=== PATIENT | male | born 1950 | race Caucasian/White ===

== ENCOUNTER 2022-11-05 11:58 | Outpatient (OUT) | payer MEDICARE, OTHER, SELFPAY ==
--- NOTE | 2022-11-05 12:01 | MR_ITS ---
[address] [address] Patient Name: MACIEL PEREZ MRN: [id number] date: 1950 Sex: M Assigned Patient Location: MRI Current Patient Location: Accession/Order Number: [id number] Exam Date: 11/05/2022 12:50 Report Date: 11/06/2022 04:41 At the request of: WARREN YOUSSEF Procedure: MR lumbar spine wo con EXAMINATION: MR lumbar spine wo con HISTORY: Acute L-side low back pain with L-side sciatica M54.42 COMPARISON: No relevant comparison available. TECHNIQUE: A variety of imaging planes and parameters were utilized for visualization of suspected pathology. FINDINGS: For the purposes of numbering, sagittal T2 image # 8 extends from the T11-T12 vertebral body superiorly to the S3 level inferiorly. PARASPINAL AREA: Normal with no visible mass. BONES: Straightening of normal lordotic curvature T12-L2. Minimal grade 1 retrolisthesis of L2 on 3 and L3 on 4. CORD/CAUDA EQUINA: Normal caliber, contour, and signal intensity. DISC LEVELS: 12-L1: No significant disc/facet abnormality, spinal stenosis, or foraminal stenosis. L1-L2: Early degenerative disc disease is present without focal protrusion or neural impingement. L2-L3: Moderate central canal and mild bilateral foramen narrowing. Minimal grade 1 retrolisthesis. Moderate posterior disc-osteophyte complex and marked disc space narrowing. Mild degenerative facet arthropathy bilaterally. L3-L4: Moderate central canal and mild bilateral foramen narrowing. Minimal grade 1 retrolisthesis. Moderate posterior disc-osteophyte complex and marked disc space narrowing. Mild degenerative facet arthropathy. L4-L5: Marked central canal narrowing. Moderate-marked left foramen and moderate right foramen narrowing. Marked diffuse disc bulging with large broad-based protrusion into the left paracentral and foraminal region; no significant disc height reduction. Moderate degenerative facet arthropathy bilaterally. L5-S1: No significant disc/facet abnormality, spinal stenosis, or foraminal stenosis. MR/MR lumbar spine wo con IMPRESSION: 1. Multilevel central canal narrowing, greatest at L4-L5 there is marked narrowing. 2. Multilevel foraminal narrowing. 3. Marked degenerative disc disease L2-L3 through L4-L5. Electronically authenticated by: SUKHDEEP BOLES Date: 11/06/2022 04:41
== END 2022-11-05 11:59 | disposition home or self-care (01) ==
LOC: MRI 11:58
PROVIDERS: PCP Physician Assistant; Visit Provider Physician Assistant
DX: M54.42 Lumbago with sciatica, left side (principal); M51.36 Other intervertebral disc degeneration, lumbar region; M48.061 Spinal stenosis, lumbar region without neurogenic claudication
CPT/HCPCS: 72148

== ENCOUNTER 2022-12-16 08:42 | Outpatient (OUT) | payer MEDICARE, OTHER, SELFPAY ==
--- NOTE | 2022-12-16 | NM_ITS ---
Patient: MACIEL PEREZ Exam Date: 12/16/2022 : 1950 Gender:M Ordering : YOBANY CRUZ Admission #: [id number] Family : DR WARREN YOUSSEF PA Order #: [id number] CLICK HERE TO VIEW EXAM RADIOLOGY REPORT PROCEDURE: NM STEPH PERF SPECT REST STR COMPARISON: None. INDICATIONS: ATHEROSCLEROTIC HEART DISEASE OF [place] CORONARY ARTERY TECHNIQUE: Exam Description: Stress/Rest two day protocol gated SPECT Rest Imagin.1 mCi Tc-99m Cardiolite IV on 12/16/2022 Stress Imaging 25.3 mCi Tc-99m Cardiolite IV on 12/17/2022 Exercise Protocol: 0.4 mg Lexiscan given IV Heart Rate (bpm): Rest: 60 Max: 80 PMHR: 53 Blood Pressure: Rest: 156/80 Max: 158/88 Symptoms: Rest and peak stress ECG findings were normal and the exercise portion of the study was normal per attending physician Dr. Yancey . For more details please see separate cardiac stress test report. FINDINGS: QUALITY OF STUDY: Good. PERFUSION DEFECT: LOCATION: Basal inferior. Mid-inferior. SIZE: Small (1-2 segments). SEVERITY: Moderate. TYPE: Persistent. WALL MOTION: Normal. LV SIZE: Enlarged; EDV 123 mL. TID / TCD: None; 1.0 LVEF: Calculated EF 67%. SUMMARY: Myocardial perfusion imaging study has ABNORMAL findings. CONCLUSION: 1. Fixed defect in the inferior wall, RCA distribution 2. No reversible ischemia 3. Dilated left ventricle, EDV 123 milliliters 4. Normal exercise test Dictated by: Deon Burns MD on 12/18/2022 at 12:13 Approved by: Deon Burns MD on 12/18/2022 at 12:22
== END 2022-12-16 08:43 | disposition home or self-care (01) ==
LOC: NM 08:42
PROVIDERS: PCP Physician Assistant; Visit Provider Nurse Practitioner
DX: I25.118 Atherosclerotic heart disease of native coronary artery with other forms of angina pectoris (principal); I20.8 Other forms of angina pectoris
CPT/HCPCS: 78452; A9500

== ENCOUNTER 2022-12-17 09:02 | Outpatient (OUT) | payer MEDICARE, OTHER, SELFPAY ==
--- NOTE | 2022-12-17 | PCN_ITS ---
CARDIAC STRESS TEST Requesting Physician:? Procedure Date:? 12/17/2022 DIAGNOSIS:? Coronary artery disease, angina. METHODS:? After risks, benefits and alternatives were explained, written informed consent was obtained.? The patient was connected to the appropriate hemodynamic and electrocardiographic monitoring.? Lexiscan 0.4 mg was infused intravenously; he was monitored for the standard duration and discharged in a stable state.? 25.3 microcuries of 99m Technetium Cardiolite were administered at peak stress on 12/17/2022. INTERPRETATION: HEMODYNAMICS:? The patient?s resting blood pressure was 156/80, with a minimum blood pressure of 152/80..? Resting heart rate was 60 beats per minute, increasing to a maximum of 79 beats per minute. The patient had no symptoms during the test. ELECTROCARDIOGRAPHY:? Resting EKG:? Normal sinus rhythm, normal EKG. During infusion and recovery:? No significant ST-T wave changes noted.? No significant arrhythmia seen.? FINAL IMPRESSIONS: 1.? No ischemic EKG changes seen on Lexiscan Cardiolite Stress Test. 2.? Nuclear images are to be read, interpreted and reported in a separate dictation. [facility]OSPITALPeter
[2022-12-17] MEDS: REGADENOSON 0.4 MG/5 ML SYRINGE IV (09:43)
== END 2022-12-17 09:03 | disposition home or self-care (01) ==
LOC: CARD 09:02
PROVIDERS: PCP Physician Assistant; Visit Provider Nurse Practitioner
DX: I25.118 Atherosclerotic heart disease of native coronary artery with other forms of angina pectoris (principal); I20.8 Other forms of angina pectoris
CPT/HCPCS: 93017; J2785

== ENCOUNTER 2023-02-06 13:07 | Outpatient (OUT) | payer MEDICARE, OTHER, SELFPAY ==
--- NOTE | 2023-02-06 14:10 | PM.CN ---
Consult Note: HPI Data of Consult Requesting Physician: Essence Fonseca NP Primary Care Provider: WARREN YOUSSEF Consult Narrative Reason for consult: f/u Narrative: Souleymane grant pleasant 73 year old male presents for evaluation and management of chronic low back pain. Patient injured himself in August of 2022 when lifting a chair, has completed 12 visits of PT and trialed gabapentin with 90% pain improvement. Was evaluated by Dr Sweeney (NS) and is continuing to follow up as needed, Dr Sweeney weaned patient off of gabapentin and pain has not intensified since. Patient interested in learning about different treatment options. Pain today 04/02, recent lumbar MRI reveals degenerative changes and diffuse disc bulging at L4-5, however patient has no radicular symptoms at this time. cc:: CC: Essence Fonseca NP Review of Systems ROS Status of ROS 10 or more systems reviewed and unremarkable except as noted in history and below Musculoskeletal Reports: back pain Exam Constitutional Documenting provider has reviewed patient's vital signs: yes Common normals: no apparent distress, oriented x3, healthy appearing, alert and well nourished General appearance: cooperative HENMT Common normals: normocephalic, hearing grossly normal bilaterally and moist oral mucous membranes Head and scalp: normocephalic Eye Common normals: PERRL Pupil: PERRL Neck & C-Spine Common normals: full ROM General: normal visual inspection Chest Common normals: inspection of chest normal Respiratory Common normals: normal respiratory effort, no retractions and no use of accessory muscles Back & Pelvis Lumbar spine/lower back: pain with ROM Other: mild pain with bilateral facet loading Extremity Common normals: normal to inspection and full ROM Neuro Common normals: oriented x3, CN's II-XII intact bilaterally, moves all extremities, no focal motor deficits, no sensory deficits noted and deep tendon reflexes 2+ bilaterally Sensorium/orientation: alert Motor exam: strength 5/5 throughout and no movement abnormalities noted Psych Common normals: mental status grossly normal, thought process normal, cooperative, affect normal, speech normal and activity/motor behavior normal Speech: normal speech Thought process: normal thought process Assessment and Plan Assessment and Plan (1) Lumbar spondylosis: (2) Lumbar stenosis: Plan self referral, pain well managed at this point in time discussed TFESIs in the future if pain worsens can consider lumbar facets and RFA if worsening low back pain related to degerenative changes f/u as needed
== END 2023-02-06 13:08 | disposition home or self-care (01) ==
LOC: PM 13:07
PROVIDERS: PCP Physician Assistant; Visit Provider Nurse Practitioner
DX: M47.816 Spondylosis without myelopathy or radiculopathy, lumbar region (principal); M48.061 Spinal stenosis, lumbar region without neurogenic claudication
CPT/HCPCS: G0463

== ENCOUNTER 2023-11-07 07:11 | Outpatient (OUT) | payer MEDICARE, BC, SELFPAY ==
--- NOTE | 2023-11-07 | PCN_ITS ---
CARDIAC STRESS TEST Requesting Physician: Pedro No M.D. Procedure Date: 11/07/2023 PERFORMING PROVIDER: Donita Leon M.D. REASON FOR TEST: Chest pain. STRESS TEST PROTOCOL: Treadmill stress test with nuclear myocardial perfusion imaging: EXERCISE PROTOCOL: Papito. Resting heart rate: 62 Max heart rate: 131 Peak maximal heart percentage: 87 Resting blood pressure: 144/84 Max blood pressure: 197/78 Exercise time: 5 minute 32 seconds Stage reached: 2 METS: 7 Reason for termination: Target heart rate achieved, fatigue. Heart rate recovery: Normal. Chronotropic response index: 0.79, normal on beta yifan. Functional capacity: Average Blood pressure response: Normal. Park treadmill score: 5, portending low risk of angiographically significant coronary artery disease. ST changes: No EKG changes meeting the criteria for ischemia. Symptoms: No chest pain. CONCLUSIONS: 1. Resting EKG demonstrates normal sinus rhythm. 2. Patient exercised for 5 minutes 32 seconds, reaching stage 2 and 7 METS. 3. There were no definite EKG changes meeting the criteria for ischemia at peak maximal heart rate. 4. Please refer to separately interpreted and reported nuclear myocardial perfusion imaging. [facility]TD[facility]
--- OUTSIDE RECORDS SUMMARY | 2023-11-07 07:14 | XMS_ITS | CCD ---
Author Organization [facility] Care Team Providers Care Customer Support Consultant Name Role Phone BRITTANY, DR RENE Myaa Primary Care Unavailable MISC, DR KIRKLAND Consulting Unavailable DAVE BUENROSTRO Admitting Unavailable JAMES, DAVE Attending Unavailable SOTO, DR RENE Maya Primary Care Unavailable DAVE BUENROSTRO Admitting Unavailable JAMES, DAVE Attending Unavailable DAVE BUENROSTRO Consulting Unavailable CRISTOPHER, DAVE Attending Unavailable CRISTOPHER, DAVE Consulting Unavailable SOTO, DR RENE Maya Primary Care Unavailable CRISTOPHER, DAVE Admitting Unavailable SOTO, DR RENE Maya Primary Care Unavailable JAMES, DAVE Admitting Unavailable JAMES, DAVE Attending Unavailable PEDRO BARRAGAN Primary Care Unavailable PEDRO BARRAGAN Referring Unavailable JAMES, DAVE Admitting Unavailable JAMES, DAVE Attending Unavailable MD Vernon Garcia Attending Provider MD Pedro Barragan Primary Care Provider Michelle Murrell Unavailable Saúl Nichole Unavailable Pedro Barragan MD Unavailable Pedro Barragan MD Primary Care Provider MD Pedro Barragan Primary Care Provider CHAITANYA Murrell Attending Provider MD Pedro Barragan Primary Care Provider MD Vernon Garcia Attending Provider [phone] Vernon Garcia Attending Unavailable Vernon Garcia Admitting Unavailable Pedro Barragan Primary Care Unavailable Michelle Murrell Attending Unavailable Pedro Barragan Primary Care Unavailable Michelle Murrell Admitting Unavailable Pedro Barragan Primary Care Unavailable Saúl Nichole Attending Unavailable Saúl Nichole Admitting Unavailable Pedro Barragan Primary Care Unavailable Vernon Garcia Admitting Unavailable Vernon Garcia Attending Unavailable YOBANY MOURA Attending Unavailable JAMES, DAVE Referring Unavailable SHERLEY RAMOS Attending Unavailable JAMES, DAVE Referring Unavailable JAMES, DAVE Referring Unavailable JAMES, DAVE Referring Unavailable JAMES, DAVE Referring Unavailable JAMES, DAVE Referring Unavailable JAMES, DAVE Referring Unavailable JAMES, DAVE Referring Unavailable JAMES, DAVE Referring Unavailable PEDRO BARRAGAN Attending Unavailable CARA DUBOIS Attending Unavailable PEDRO BARRAGAN Referring Unavailable JUDIE YOUSSEF Attending Unavailable PROSPER TRAN Referring Unavailable PEDRO BARRAGAN Attending Unavailable Allergies Allergy Classification Reported Allergen(s) Allergy Type Date of Onset Reaction(s) Facility Dihydrofolate Reductase Inhibitors (antibiotic) (1 source) Trimethoprim Drug Allergy 4 [facility] Sulfonamides (antibiotic) (1 source) Sulfamethoxazole Drug Allergy 4 [facility] (2 sources) Sulfamethoxazole / Trimethoprim Drug Allergy 2 [facility] Repository (7 sources) Sulfamethoxazole / Trimethoprim Drug Allergy 2 Unknown [facility] (1 source) Sulfonamides (Antibiotic) Drug Allergy 3 Unknown [facility] Work Phone: (7 sources) Sulfamethoxazole; Translations: [sulfamethoxazole] Drug Allergy 4 [facility] (7 sources) Trimethoprim; Translations: [trimethoprim] Drug Allergy 4 [facility] (1 source) Sulfamethoxazole / Trimethoprim; Translations: [SULFAMETHOXAZOLE-TR IMETHOPRIM] Drug Allergy 2 [facility] Repository Medications Current Medications Medication Drug Class(es) Dates Sig (Normalized) Sig (Original) acetaminophen 300 mg / codeine phosphate 30 mg oral tablet (1 source) Opioid Agonist take 1 tablet by mouth every six hours as needed for pain acetaminophen-cod eine (TYLENOL/CODEINE #3) 300-30 MG tablet Take 1 tablet by mouth every 6 (six) hours if needed for severe pain. 0 Active [id number] 200 actuat albuterol 0.09 mg/actuat metered dose inhaler (1 source) beta2-Adrenergic Agonist albuterol HFA (Ventolin HFA) 90 mcg/act inhaler Inhale by inhalation route as directed for 25 days. 0 Active apixaban 5 mg oral tablet (18 sources) Factor Xa Inhibitor Start: 05-07-2023 take 1 tablet by mouth every twelve hours Apixaban (Eliquis) 5 mg tablet Active 5 MG PO Every 12 hours May 07, 2023 1:00am take 1 tablet by mouth in the mo rning Eliquis 5 MG tablet Take 1 tablet by mouth in the morning and 1 tablet before bedtime. 0 Active atorvastatin 40 mg oral tablet (7 sources) HMG-CoA Reductase Inhibitor take 1 tablet by mouth at bedtime atorvastatin (Lipitor) 40 MG tablet Take 1 tablet by mouth at bedtime. 0 Active clopidogrel 75 mg oral tablet (17 sources) P2Y12 Platelet Inhibitor Start: 4 take 75 mg by mouth once daily Clopidogrel Active 75 MG PO Daily May 07, 2023 1:00am take 1 tablet by mouth once lauren y clopidogrel (Plavix) 75 MG tablet Take 1 tablet by mouth 1 (one) time each day at the same time. 0 Active Clopidogrel & Aspirin (1 source) Clopidogrel & Aspirin Active empagliflozin 25 mg oral tablet (18 sources) Sodium-Glucose Cotransporter 2 Inhibitor Start: 05-07-19 24 take 1 tablet by mouth once daily in the morning Empagliflozin (Jardiance) 25 mg tablet Active 25 MG PO Every morning May 07, 2023 1:00am Start: 11-13-2022 take 1 tablet by josi th in the morning empagliflozin (Jardiance) 25 MG Indications: Type 2 diabetes mellitus without complications (CMS/HCC) Take 1 tablet (25 mg) by mouth in the morning. 100 tablet 1 11/13/2022 Active Fiber (6 sources) Fiber - as direc kristin Orally Active fluticasone propionate 0.05 mg/actuat metered dose nasal spray (1 source) Corticosteroid take 1 spray(s) nasal route in the morning fluticasone (Flonase) 50 MCG/ACT nasal spray Administer 1 spray into each nostril in the morning. 0 Active gabapentin 300 mg oral capsule (2 sources) Anti-epileptic Agent Start: 3 take 1 capsule by mouth in the morning, then take 1 capsule by mouth in the evening, then take 1 capsule by mouth at bedtime gabapentin (Neurontin) 300 MG capsule Indications: Spondylosis of lumbar spine Take 1 capsule (300 mg) by mouth in the morning and 1 capsule (300 mg) in the evening and 1 capsule (300 mg) before bedtime. 270 capsule 1 12/02/2022 Active 24 hr isosorbide mononitrate 30 mg extended release oral tablet (17 sources) Nitrate Vasodilator Start: take 30 mg by mouth once daily Isosorbide Mononitrate Active 30 MG PO Daily May 07, 2023 1:00am Start: 11-20-2022 take 1 tablet by josi th once daily isosorbide mononitrate ER (Imdur) 30 MG 24 hr tablet Indications: Arteriosclerotic vascular disease Take 1 tablet (30 mg) by mouth 1 (one) time each day at the same time. 100 tablet 3 11/20/2022 Active isosorbide dinitrate 30 mg oral tablet (1 source) Nitrate Vasodilator take 1 tablet by mouth every twelve hours Isosorbide Dinitrate 30 MG 1 tablet Orally Twice a day Active lidocaine 0.05 mg/mg medicated patch (6 sources) Antiarrhythmic, Amide Local Anesthetic Start: 01-28-2023 Lidocaine 5 % 1 patch remove after 12 hours Externally Once a day for Jan, Active lisinopril 20 mg oral tablet (17 sources) Angiotensin Converting Enzyme Inhibitor Start: 05-07-2023 take 20 mg by mouth once daily Lisinopril Active 20 MG PO Daily May 07, 2023 1:00am lisinopril 20 MG tablet 1 tablet 1 (one) time each day at the same time. 0 Active meloxicam 15 mg oral tablet (18 sources) Nonsteroidal Anti-inflammatory Drug Start: 05-07-2023 take 15 mg by mouth once daily Meloxicam Active 15 MG PO Daily May 07, 2023 1:00am Start: 01-27-2023 take 1 tablet by josi th once daily meloxicam (Mobic) 15 MG tablet Indications: Primary osteoarthritis, right hand TAKE 1 TABLET BY MOUTH EVERY DAY FOR 100 DAYS 90 tablet 4 01/27/2023 Active metFORMIN hydrochloride 500 mg oral tablet (17 sources) Biguanide Start: 05-07-2023 take 500 mg by mouth once daily Metformin Active 500 MG PO Daily May 07, 2023 1:00am take 1 tablet by mouth once lauren y metFORMIN (Glucophage) 500 MG tablet Take 1 tablet by mouth 1 (one) time each day at the same time. 0 Active 24 hr metoprolol succinate 25 mg extended release oral capsule (18 sources) beta-Adrenergic Baudilio Start: 05-07-2023 take 50 mg by mouth twice daily Metoprolol Succinate Active 50 MG PO Twice daily May 07, 2023 1:00am take 1 tablet by josi th every twelve hours metoprolol tartrate (Lopressor) 50 MG tablet Take 1 tablet by mouth every 12 (twelve) hours. 0 Active take 1 capsule by mouth once val ly Metoprolol Succinate 50 MG 1 capsule Orally Once a day Active Multivitamin Adult (6 sources) Multivitamin Blue lt Active nitroglycerin 0.4 mg sublingual tablet (18 sources) Nitrate Vasodilator Start: 05-07-2023 Nitroglycerin Active 0.4 MG SUBLINGUAL As Directed May 07, 2023 1:00am Nitrostat 0.[address] 0.4 mg under the tongue every 5 (five) minutes if needed for chest pain. 0 Active Nitroglycerin 0. 4 MG as directed Sublingual Active ozempic (0.25 or 0.5 mg/dose) 2 mg/3ml solution pen-injector (5 sources) Start: 03-12-2023 inject 0.5 mg by subcutaneous injection every week Ozempic (0.25 or 0.5 MG/DOSE) 2 MG/3ML 0.5 mg Subcutaneous Once weekly for 28 days Feb, Active Start: 03-12-2023 inject 0.25 mg by valenzuela bcutaneous injection every week, then inject 0.5 mg by subcutaneous injection every week Ozempic (0.25 or 0.5 MG/DOSE) 2 MG/3ML 0.25 mg subcutaneously once weekly Subcutaneous Once weekly for 28 days Feb, Active Ozempic, 0.25 or 0.5 MG/DOSE, 2 MG/3ML solution pen-injector (1 source) Start: 03-12-2023 inject 0.25 mg by subcutaneous injection every week Ozempic, 0.25 or 0.5 MG/DOSE, 2 MG/3ML solution pen-injector INJECT 0.25 MG SUBCUTANEOUSLY ONCE A WEEK FOR 28 DAYS 0 03/12/2023 Active pravastatin sodium 20 mg oral tablet (10 sources) HMG-CoA Reductase Inhibitor Start: 07-02-2023 take 20 mg by mouth once daily Pravastatin Active 20 MG PO Daily July 02, 2023 12:00am rosuvastatin calcium 20 mg oral tablet (12 sources) HMG-CoA Reductase Inhibitor Start: 04-02-2023 End: 04-01-2024 take 20 mg by mouth once daily Rosuvastatin Active 20 MG PO Daily May 07, 2023 1:00am Semaglutide Base (18 sources) Start: 10-06-2023 inject 2.268 mg by subcutaneous injection every week Semaglutide Base Active 2.268 MG SUBCUT every week 2.52 October 06, 2023 3:14pm [facility] Pre-filled Syringes using Semaglutide Base. Dispense 2.52 mL = (Four 0.63 mL pre-filled syringes) Start: 09-17-2023 End: 10-06-2023 inject 1 mL by subcutaneous injection every week Semaglutide Base Discontinued 0.63 ML SUBCUT every week 2.52 September 17, 2023 12:00am October 06, 2023 3:16pm [facility] Pre-filled Syringes using Semaglutide Base. Dispense 2.52 mL = (Four 0.63 mL pre-filled syringes) Start: 09-17-2023 inject 1 mL by subcu taneous injection every week Semaglutide Base Active 0.63 ML SUBCUT every week 2.52 September 17, 2023 12:00am [facility] Pre-filled Syringes using Semaglutide Base. Dispense 2.52 mL = (Four 0.63 mL pre-filled syringes) Start: 07-02-2023 End: 09-17-2023 inject 1 mL by subcutaneous injection every week Semaglutide Base Discontinued 0.5 ML SUBCUT every week 2 July 02, 2023 12:00am September 17, 2023 10:27am [facility] Pre-filled Syringes using Semaglutide Base. Dispense 2 mL = (Four 0.5 mL pre-filled syringes) Start: 07-02-2023 inject 1 mL by subcu taneous injection every week Semaglutide Base Active 0.5 ML SUBCUT every week 2 July 02, 2023 12:00am [facility] Pre-filled Syringes using Semaglutide Base. Dispense 2 mL = (Four 0.5 mL pre-filled syringes) spironolactone 25 mg oral tablet (18 sources) Aldosterone Antagonist Start: 05-07-2023 take 12.5 mg by mouth once daily Spironolactone Active 12.5 MG PO Daily May 07, 2023 1:00am take 0.5 tablet by m outh in the morning spironolactone (Aldactone) 25 MG tablet TAKE 1/2 TABLET BY MOUTH IN THE MORNING 0 Active Spironolactone 2 5 MG 1 tablet Orally Active thiamine 100 mg oral tablet (10 sources) Start: 07-02-2023 take 100 mg by mouth once daily Thiamine Hcl (Vitamin B1) Active 100 MG PO Daily July 02, 2023 12:00am tiZANidine 4 mg oral tablet (1 source) Central alpha-2 Adrenergic Agonist Start: 11-12-2022 take 1 tablet by mouth every six hours for muscle spasms tiZANidine (Zanaflex) 4 MG tablet Indications: Acute left-sided low back pain with left-sided sciatica Take 1 tablet (4 mg) by mouth every 6 (six) hours if needed for muscle spasms for up to 10 days. 30 tablet 0 11/12/2022 Active Completed/Discontinued Medications Medication Drug Class(es) Dates Sig (Normalized) Sig (Original) 0.5 ml dulaglutide 1.5 mg/ml auto-injector (11 sources) GLP-1 Receptor Agonist Start: 05-07-2023 End: 07-02-2023 Dulaglutide (Trulicity) 0.75 mg/0.5 mL pen injector Discontinued 0.75 MG SUBCUT every week 2 May 07, 2023 1:00am July 02, 2023 9:56am Prednisone (16 sources) Start: 08-19-2023 End: 09-17-2023 Prednisone Discontinued 0 PO per package directions 22 03August 19, 2023 12:00am September 17, 2023 10:20am take 4 tabs for 3 days then take 3 tabs for 3 days then take 2 tabs for 3 days then take 1 tab for 3 days Start: 08-19-2023 Prednisone Act scott 0 PO per package directions 22 03August 19, 2023 12:00am take 4 tabs for 3 days then take 3 tabs for 3 days then take 2 tabs for 3 days then take 1 tab for 3 days Start: 08-19-2023 End: 08-19-2023 Prednisone Discontinued 0 PO per package directions August 19, 2023 12:00am August 19, 2023 10:25am take 4 tabs for 3 days then take 3 tabs for 3 days then take 2 tabs for 3 days then take 1 tab for 3 days Problems Active Problems Problem Classification Problem Date Documented Date Episodic/Chronic Administrative/social admission (20 sources) Dietary counseling and surveillance; Translations: [Other specified counseling] Onset: 03-12-2023 Episodic Asthma (1 source) Asthma; Translations: [Unspecified asthma, uncomplicated] Onset: 09-03-2022 09-03-2022 Chronic Cardiac dysrhythmias (14 sources) Atrial fibrillation; Translations: [Unspecified atrial fibrillation] Onset: 03-08-2022 09-03-2022 Chronic Cardiac dysrhythmias (2 sources) Palpitations; Translations: [Palpitations] Onset: 09-02-2023 Episodic Coronary atherosclerosis and other heart disease (20 sources) Coronary arteriosclerosis; Translations: [Atherosclerotic heart disease of [place] coronary artery without angina pectoris] Onset: 03-07-2022 Chronic Diabetes mellitus without complication (20 sources) Type 2 diabetes mellitus; Translations: [Type 2 diabetes mellitus without complications] Onset: 09-03-2022 Chronic Disorders of lipid metabolism (3 sources) Pure hypercholesterolemia; Translations: [Pure hypercholesterolemia, unspecified] Onset: 09-03-2022 09-03-2022 Chronic Diverticulosis and diverticulitis (1 source) Diverticulitis of large intestine; Translations: [Diverticulitis of large intestine without perforation or abscess without bleeding] Onset: 09-03-2022 09-03-2022 Chronic Essential hypertension (14 sources) Hypertensive disorder; Translations: [Essential (primary) hypertension] Onset: 03-07-2022 11-12-2022 Chronic Osteoarthritis (1 source) Osteoarthritis of joint of bilateral hands; Translations: [Primary osteoarthritis, right hand] Onset: 09-03-2022 09-03-2022 Chronic Other and ill-defined heart disease (11 sources) Heart disease; Translations: [Heart disease, unspecified] 05-07-2023 Chronic Other ear and sense organ disorders (1 source) Sensorineural hearing loss, bilateral; Translations: [Sensorineural hearing loss, bilateral] Onset: 09-03-2022 09-03-2022 Chronic Other infections; including parasitic (1 source) Late effects of other and unspecified infectious and parasitic diseases; 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] Onset: 09-03-2022 09-03-2022 Chronic Other nervous system disorders (1 source) Carpal tunnel syndrome; Translations: [Carpal tunnel syndrome, unspecified upper limb] Onset: 09-03-2022 09-03-2022 Chronic Other nervous system disorders (1 source) Idiopathic progressive polyneuropathy; Translations: [Idiopathic progressive neuropathy] Onset: 09-03-2022 09-03-2022 Chronic Other nervous system disorders (4 sources) Chronic pain; Translations: [Other chronic pain] 09-29-2023 Chronic Other nervous system disorders (6 sources) Other chronic pain; Translations: [Other chronic pain] 09-29-2023 Chronic Other non-traumatic joint disorders (1 source) Pain in left hip Episodic Other nutritional; endocrine; and metabolic disorders (6 sources) Body mass index 30+ - obesity; Translations: [Body mass index (BMI) 37.0-37.9, adult] Chronic Other nutritional; endocrine; and metabolic disorders (2 sources) Body mass index (BMI) 37.0-37.9, adult Chronic Other nutritional; endocrine; and metabolic disorders (5 sources) Morbid obesity; Translations: [Morbid (severe) obesity due to excess calories] Chronic Other nutritional; endocrine; and metabolic disorders (1 source) Morbid (severe) obesity due to excess calories Chronic Other nutritional; endocrine; and metabolic disorders (11 sources) Obese class II; Translations: [Obesity, unspecified] 05-07-2023 Chronic Other nutritional; endocrine; and metabolic disorders (11 sources) Obesity; Translations: [Obesity, unspecified] 05-07-2023 Chronic Other nutritional; endocrine; and metabolic disorders (15 sources) Obesity, unspecified; Translations: [Obesity, unspecified] Onset: 05-07-2023 05-07-2023 Chronic Other upper respiratory infections (1 source) Sinusitis; Translations: [Chronic sinusitis, unspecified] Onset: 09-03-2022 09-03-2022 Chronic Peripheral and visceral atherosclerosis (20 sources) Arteriosclerotic vascular disease; Translations: [Unspecified atherosclerosis] Onset: 09-03-2022 09-03-2022 Chronic Residual codes; unclassified (4 sources) Obstructive sleep apnea (adult) (pediatric); Translations: [OBSTRUCTIVE SLEEP APNEA] Onset: 03-28-2021 Chronic Residual codes; unclassified (1 source) Obstructive sleep apnea syndrome; Translations: [Obstructive sleep apnea (adult) (pediatric)] Onset: 09-03-2022 09-03-2022 Chronic Spondylosis; intervertebral disc disorders; other back problems (20 sources) Disorder of lumbar disc; Translations: [Unspecified thoracic, thoracolumbar and lumbosacral intervertebral disc disorder] Onset: 11-20-2022 Chronic Spondylosis; intervertebral disc disorders; other back problems (20 sources) Spinal stenosis of lumbar region; Translations: [Spinal stenosis, lumbar region without neurogenic claudication] 08-19-2023 Episodic Unclassified (1 source) CONTACT W/AND (SUSP) EXPOS COVID-19; Translations: [CONTACT W/AND (SUSP) EXPOS COVID-19] Onset: 10-03-2021 Past or Other Problems Problem Classification Problem Date Documented Date Episodic/Chronic Nonspecific chest pain (1 source) Chest pain; Translations: [Chest pain, unspecified] Onset: 03-07-2022 11-12-2022 Episodic Other ear and sense organ disorders (1 source) Bilateral tinnitus; Translations: [Tinnitus, bilateral] Onset: 09-03-2022 09-03-2022 Episodic Other screening for suspected conditions (not mental disorders or infectious disease) (1 source) MRI of lumbar spine abnormal; Translations: [Abnormal findings on diagnostic imaging of other parts of musculoskeletal system] Onset: 11-20-2022 11-20-2022 Episodic Residual codes; unclassified (1 source) Insomnia; Translations: [Insomnia, unspecified] Onset: 09-03-2022 09-03-2022 Episodic Residual codes; unclassified (1 source) Intolerance to drug; Translations: [Other specified health status] Onset: 03-07-2022 11-12-2022 Episodic Results Test Name Value Interpretation Reference Range Facility US arterial pvr rest Carlos US arterial pvr rest [facility] [place] [place] [address] Ultrasound Report Signed Patient: Souleymane Wu MR#: [id number] 05 : 1950 Acct:[id number] Age/Sex: 73 / M ADM Date: 09/01/23 Loc: Room: Type: [facility] CL Attending Dr: Vernon Garcia MD Ordering Provider: Vernon Garcia MD Date of Service: 09/01/23 US/US arterial pvr rest LE: I73.9 - Peripheral vascular disease, unspecified Copies to: Vernon Garcia MD LOWER EXTREMITY SEGMENTAL ARTERIAL DOPSCAN (PVR) INDICATION: Claudication PROCEDURE: Right arm blood pressure is 137 , left is 142 . Pressures throughout the right leg are 230 at the high thigh, at the 177 low thigh, 159 at the calf, 165 at the ankle using the posterior tibial artery, and 171 at the ankle using the dorsalis pedis artery with ankle- brachial index of 1.16 1.20 . Pressures throughout the left leg are 180 at the high thigh, at the 173 low thigh, 148 at the calf and 178 at the ankle using the posterior tibial artery, and 168 at the ankle using the dorsalis pedis artery with ankle-brachial index of 1.25 1.18 . Wave forms by plethysmography are normal. US/US arterial pvr rest LE IMPRESSION: NO HEMODYNAMICALLY SIGNIFICANT PERIPHERAL VASCULAR OCCLUSIVE DISEASE AT REST IN EITHER LOWER EXTREMITY. Impression dictated by: Pj Roldan M.D.09/02/2023 11:56 AM Dictation Location: [place] [address] Tech: Pauline Garvin Transcribed By: HAWA 09/02/23 1156 Dictated By: Pj Roldna MD 09/02/23 1155 Signed By: 09/02/23 1156 Normal [facility] Office Visiton 06-04-2023 Follow-up visit [id number] Mikel Wu 1950 M Date Provider Department Center 06/04/2023 [facility] Family History Problem Relation Age of Onset Stroke Mother Breast cancer Mother COPD Father Family Status - Relation Status Age at Mother Father Level of Service:[id number] LA OFFICE/OUTPATIENT ESTABLISHED MOD MDM 30 MIN Normal [facility] Laboratory - Hematology and Cell countson 04-28-2023 HbA1c (Bld) [Mass fraction] 6.0 % [facility] 36on 04-01-2023 36 Patient called c/o pain in the back of his thighs and shoulders for the past few weeks. He wonders if it could be from atorvastatin. He's been on 40mg of it since 2013. Can he try a different one? Please advise. Thanks! Normal [facility] XR hip LT min 2V(w/wo pelvis )*on 01-28-2023 XR hip LT min 2V(w/wo pelvis)* [facility] Main [place] [address] [place] [address] XRay Report Signed Patient: Souleymane Wu JR MR#: [id number] : 1950 Acct:[id number] Age/Sex: 73 / M ADM Date: 01/28/23 Loc: XD Room: Type: [facility] Attending Dr: Vernon Garcia MD Copies to: Vernon Garcia MD Ordering Provider: Vernon Garcia MD Date of Service: 01/28/23 XR/XR lumbar spine 6V w bending: M47.816 ([id number]) XR/XR hip LT min 2V(w/wo pelvis)*: M25.559 CLINICAL HISTORY: Low back pain radiating to the left hip for the past few weeks. No recent injury. LUMBAR SPINE WITH FLEXION, EXTENSION AND BENDING VIEWS- 6 views: COMPARISON: MRI lumbar spine 11/05/2022 Standing AP neutral, right left bending and lateral views in neutral, flexion and extension were obtained. There is subtle levoscoliotic curvature. There is subtle retrolisthesis of L5 respect to adjacent vertebra. No instability is noted. There is disc space narrowing at L2-3 and L3-4 where there is endplate sclerosis and prominent endplate spurring. Additional small endplate spurs are seen. There is lower lumbar facet disease. The SI joints are intact. No paraspinal soft tissue abnormalities are present. XR/XR lumbar spine 6V w bending IMPRESSION: SUBTLE SCOLIOSIS AND DEGENERATIVE CHANGES, DESCRIBED. LEFT HIP - 2 views COMPARISON: None AP and frog-lateral views were obtained. No acute fracture or dislocation is identified. The hip joint space is maintained. There is no prominent hypertrophy. No soft tissue abnormalities are noted. IMPRESSION: NO ACUTE BONY FINDINGS. Impression dictated by: Judie Madrid M.D.01/28/2023 2:38 PM Dictation Location: [place] [address] Transcribed By: [facility] 01/28/23 143 Dictated By: Judie Madrid MD 01/28/231433 Signed By: 01/28/23 143 Normal [facility] Office Visiton 11-26-2022 Follow-up visit [id number] Mikel Wu 1950 Date Provider Department Center 11/26/2022 [facility] Family History Problem Relation Age of Onset Stroke Mother Breast cancer Mother COPD Father Family Status - Relation Status Age at Mother Father Level of Service:[id number] LA OFFICE/OUTPATIENT ESTABLISHED MOD MDM 30-39 MIN Normal [facility] Cardiovascular Lab Reporton 10-04-2021 Cardiovascular Lab Report [facility] [place] Patient Name: Souleymane Wu MR #: [id number] [facility] Physician: Dave Buenrostro MD Service Date: 10/04/2021 Department of Birthdate: 1950 Medicine Room #: CC Division of Cardiology Adult Cardiovascular Services [place] [address] Cardiovascular Laboratory Report LOOP EXPLANT REIMPLANT PROCEDURE NOTE DATE OF PROCEDURE: 10/04/2021 PERFORMING PHYSICIAN: Dr. Dave Buenrostro INDICATIONS FOR PROCEDURE: 1. Device at EOL CONSENT: Patient LOCATION: MARK room PROCEDURAL SEDATION: Local anesthesia. FLUOROSCOPY TIME: 0min PREPARATION: Preoperative antibiotics was administered. PROCEDURES PERFORMED: 1. LOOP explant and new LOOP implant PROCEDURE NOTE: 71-year-old gentleman with a history of planned loop implant, which has reached end of life. He has come in for loop explant and reimplant for AF surveillience. The risks, benefits and alternatives of the procedure were discussed with the patient who agreed to proceed. Please refer to my consult note for details of the discussion and of indications. Patient was brought to the room in the post absorptive state. A procedural pause was performed verifying the patient, the procedure. Sterile prep and drape were performed over the left precordium and anesthesia with 1% lidocaine was followed by a small incision where I felt the device to be most superficial. This was in lower 4th Intercostal aspect. With dissection, the device was exteriorized. I then used a [place] [employer] tool to place the new LOOP device. The skin was then closed with 3-0 absorbable monofilament suture and glue applied to hold the edges together. Tegaderm was applied to cover the wound. The patient appeared to tolerate the procedure well and was returned to room in stable condition. No complications were immediately observed. LOOP details: Implanted device: [employer] LUX DX Serial#[id number] Sensin.15mV Removed device [employer] LINQ Serial# [id number] IMPRESSION: Successful explant of old LOOP and implant of new LOOP device. RECOMMENDATIONS: 1. Occlusive dressing to be changed after 7 days. 2. Do not wet the incision. Dave Buenrostro MD Cardiac Electrophysiology Electronically Signed by: Dave Buenrostro MD 10/06/2021 03:34 P Dave Buenrostro MD Date Dict: 10/04/2021/09:31 A/Dave Buenrostro MD Date Trans: 10/04/2021 10:09 Higinio/naresh [id number] cc: Pedro Barrgaan M.D. Life Stages 3 [facility] [id number] Normal [facility] Covid-19 PCR (CVDTB)on 09-21 SARS-CoV-2 (COVID-19) RNA SARBJIT+probe Ql (Unsp spec) Not detected Normal NOT DETECTED [facility] Comment on above: Result Comment: This test is not yet approved or cleared by the [place] FDA. When there are no FDA-approved or cleared tests available, and other criteria are met, FDA can make tests available under an emergency access mechanism called an Emergency Use Authorization (EUA). The EUA for this test is supported by the [place] of Health and Human Service's (HHS's) declaration that circumstances exist to justify the emergency use of in vitro diagnostics for the detection and/or diagnosis of the virus that causes COVID-19. This EUA will remain in effect (meaning this test can be used) for the duration of the COVID-19 declaration justifying emergency of IVDs, unless it is terminated or revoked by FDA (after which the test may no longer be used). When diagnostic testing is negative, the possibility of a false negative should be considered in the context of a patient's recent exposures and the presence of clinical signs and symptoms consistent with SARS-CoV-2. Performed By: #### C VDTBH #### [facility] [address], [place] [address] Dr. Michaelle Canada RBC Sedimentation Rateon ESR (Bld) [Velocity] 12.00 mm/h Normal 0.00-20.00 [facility] Care Coordinator Comment on above: Performed By: #### E #### [facility] [address] [place], [place] [id number] Covid-19 PCR ([facility])on 01-22 SARS-CoV-2 (COVID-19) RNA SARBJIT+probe Ql (Unsp spec) Not detected Normal NOT DETECTED [facility] Comment on above: Result Comment: This test is not yet approved or cleared by the [place] FDA. When there are no FDA-approved or cleared tests available, and other criteria are met, FDA can make tests available under an emergency access mechanism called an Emergency Use Authorization (EUA). The EUA for this test is supported by the [place] of Health and Human Service's (HHS's) declaration that circumstances exist to justify the emergency use of in vitro diagnostics for the detection and/or diagnosis of the virus that causes COVID-19. This EUA will remain in effect (meaning this test can be used) for the duration of the COVID-19 declaration justifying emergency of IVDs, unless it is terminated or revoked by FDA (after which the test may no longer be used). When diagnostic testing is negative, the possibility of a false negative should be considered in the context of a patient's recent exposures and the presence of clinical signs and symptoms consistent with SARS-CoV-2. Performed By: #### C VDTBH #### [facility] [address] [place] [address] [address] Michaelle Canada Vital Signs Date Time Vital Sign Value Performing Clinician Facility 11-04-2023 09:03-0400 Body weight 110.22 kg MD Pedro Barragan Work Phone: [facility] [place] 10-23-2023 15:240400 Body weight 111.58 kg MD Pedro Barragan Work Phone: [facility] [place] 10-23-2023 15:24-0400 Heart rate 75 /min MD Pedro Barragan Work Phone: [facility] [place] 10-23-2023 15:240400 SaO2% (BldA) [Mass fraction] 99 % MD Pedro Barragan Work Phone: [facility] [place] 09-29-2023 15:09-0400 Body height 180.34 cm MD Pedro Barragan Work Phone: [facility] [place] 09-29-2023 15:09-0400 Body mass index (BMI) [Ratio] 33.7 kg/m2 MD Pedro Barragan Work Phone: [facility] [place] 09-29-2023 15:09-0400 Body weight 109.76 kg MD Pedro Barragan Work Phone: [facility] [place] 09-29-2023 15:09-0400 Diastolic blood pressure 82 mm[Hg] MD Pedro Barragan Work Phone: [facility] [place] 09-29-2023 15:09-0400 Systolic blood pressure 118 mm[Hg] MD Pedro Barragan Work Phone: [facility] [place] 09-17-2023 10:09-0400 Body height 180.34 cm MD Pedro Barragan Work Phone: [facility] [place] 09-17-2023 10:09-0400 Body mass index (BMI) [Ratio] 34 kg/m2 MD Pedro Barragan Work Phone: [facility] [place] 09-17-2023 10:09-0400 Body weight 110.87 kg MD Pedro Barragan Work Phone: [facility] [place] 09-17-2023 10:09-0400 Diastolic blood pressure 75 mm[Hg] MD Pedro Barragan Work Phone: [facility] [place] 09-17-2023 10:09-0400 Heart rate 70 /min MD Pedro Barragan Work Phone: [facility] [place] 09-17-2023 10:09-0400 Respiratory rate 18 /min MD Pedro Barragan Work Phone: [facility] [place] 09-17-2023 10:09-0400 SaO2% (BldA) [Mass fraction] 97 % MD Pedro Barragan Work Phone: [facility] [place] 09-17-2023 10:09-0400 Systolic blood pressure 117 mm[Hg] MD Pedro Barragan Work Phone: [facility] [place] 09-04-2023 14:29-0400 Body height 180.34 cm MD Pedro Barragan Work Phone: [facility] [place] 09-04-2023 14:29-0400 Body mass index (BMI) [Ratio] 34 kg/m2 MD Pedro Barragan Work Phone: [facility] [place] 09-04-2023 14:29-0400 Body weight 110.67 kg MD Pedro Barragan Work Phone: [facility] [place] 08-19-2023 08:15-0400 Body height 180.34 cm [facility] 08-19-2023 08:15-0400 Body mass index (BMI) [Ratio] 34.2 kg/m2 [facility] [place] 08-19-2023 08:15-0400 Body weight 111.13 kg [facility] 07-02-2023 10:01-0400 Body height 180.34 cm [facility] 07-02-2023 10:01-0400 Body mass index (BMI) [Ratio] 35.7 kg/m2 [facility] [place] 07-02-2023 10:01-0400 Body weight 116.23 kg [facility] 07-02-2023 10:01-0400 Diastolic blood pressure 75 mm[Hg] [facility] [place] 07-02-2023 10:01-0400 Heart rate 68 /min [facility] 07-02-2023 10:01-0400 Respiratory rate 18 /min [facility] 07-02-2023 10:01-0400 SaO2% (BldA) [Mass fraction] 97 % [facility] [place] 07-02-2023 10:01-0400 Systolic blood pressure 125 mm[Hg] [facility] [place] 05-07-2023 10:16-0500 Body height 180.34 cm MD Pedro Barragan Work Phone: [facility] [place] 05-07-2023 10:16-0500 Body mass index (BMI) [Ratio] 36 kg/m2 MD Pedro Barragan Work Phone: [facility] [place] 05-07-2023 10:16-0500 Body weight 117.25 kg MD Pedro Barragan Work Phone: [facility] [place] 05-07-2023 10:16-0500 Diastolic blood pressure 69 mm[Hg] MD Pedro Barragan Work Phone: [facility] [place] 05-07-2023 10:16-0500 Heart rate 65 /min MD Pedro Barragan Work Phone: [facility] [place] 05-07-2023 10:16-0500 Respiratory rate 18 /min MD Pedro Barragan Work Phone: [facility] [place] 05-07-2023 10:16-0500 SaO2% (BldA) [Mass fraction] 97 % MD Pedro Barragan Work Phone: [facility] [place] 05-07-2023 10:16-0500 Systolic blood pressure 121 mm[Hg] MD Pedro Barragan Work Phone: [facility] [place] 04-22-2023 08:40-0500 Body height 180.34 cm Michelle Murrell Other [facility] [place] 04-22-2023 08:40-0500 Body mass index (BMI) [Ratio] 36.68 kg/m2 Michelle Murrell Other [employer] Other 04-22-2023 08:40-0500 Body weight 119.3 kg Michelle Murrell Other [employer] Other 04-22-2023 08:40-0500 Body weight 119.29 kg MD Pedro Barragan Work Phone: [facility] [place] 03-12-2023 09:45-0500 Body height 180.34 cm Saúl Nichole Other [facility] [place] 03-12-2023 09:45-0500 Body mass index (BMI) [Ratio] 38.31 kg/m2 Saúl Nichole Other [employer] Other 03-12-2023 09:45-0500 Body weight 124.6 kg Saúl Nichole Other [facility] [place] 03-12-2023 09:45-0500 Diastolic blood pressure 83 mm[Hg] Saúl Nichole Other [facility] [place] 03-12-2023 09:45-0500 Respiratory rate 18 /min Saúl Nichole Other [employer] Other 03-12-2023 09:45-0500 SaO2% (BldA) [Mass fraction] 98 % Saúl Nichole Other [employer] Other 03-12-2023 09:45-0500 Systolic blood pressure 131 mm[Hg] Saúl Nichole Other [facility] 01-28-2023 08:40-0500 Body height 182.88 cm Michelle Murrell Other [employer] Other 01-28-2023 08:40-0500 Body mass index (BMI) [Ratio] 37.7 kg/m2 Michelle Murrell Other [employer] Other 01-28-2023 08:40-0500 Body weight 126.1 kg Michelle Murrell Other [employer] Other Encounters Encounter Date Encounter Type Care Provider Facility Start: 11-04-2023 End: 11-04-2023 ambulatory MD Pedro Barragan Work Phone: [facility] Work Phone: Start: 11-04-2023 End: 11-04-2023 Patient encounter procedure MD Pedro Barragan Work Phone: [facility] Physician [facility] Neurosurgery Work Phone: Start: 10-28-2023 End: 10-28-2023 ambulatory PEDRO BARRAGAN Not Available Start: 10-23-2023 End: 10-23-2023 ambulatory MD Pedro Barragan Work Phone: [facility] Work Phone: Start: 10-23-2023 End: 10-23-2023 Patient encounter procedure MD Pedro Barragan Work Phone: [facility] Physician [facility] Pain Management Work Phone: Start: 10-16-2023 End: 10-16-2023 ambulatory MD Pedro Barragan Work Phone: [facility] Work Phone: Start: 10-16-2023 End: 10-16-2023 Patient encounter procedure MD Pedro Barragan Work Phone: [facility] Physician [facility] Work Phone: Start: 10-16-2023 Non-patient / Non-visit MD Evans Barragan Work Phone: [facility] Physician [facility] Work Phone: Start: 09-29-2023 End: 09-29-2023 ambulatory MD Pedro Barragan Work Phone: [facility] Work Phone: Start: 09-29-2023 End: 09-29-2023 Patient encounter procedure MD Pedro Barragan Work Phone: [facility] Pain [facility] Work Phone: Start: 09-17-2023 End: 09-17-2023 ambulatory MD Pedro Barragan Work Phone: [facility] Work Phone: Start: 09-17-2023 End: 09-17-2023 Patient encounter procedure MD Pedro Barragan Work Phone: [facility] Work Phone: Start: 09-04-2023 End: 09-04-2023 ambulatory MD Pedro Barragan Work Phone: [facility] Work Phone: Start: 09-04-2023 End: 09-04-2023 Patient encounter procedure MD Pedro Barragan Work Phone: [facility] Neurosurgery Work Phone: Start: 09-02-2023 ambulatory [facility] Start: 09-01-2023 End: 09-01-2023 Patient encounter procedure MD Pedro Barragan Work Phone: [facility] [place] Work Phone: Start: 09-01-2023 End: 09-01-2023 ambulatory MD Pedro Barragan Work Phone: [facility] Work Phone: Start: 08-19-2023 End: 08-19-2023 ambulatory [facility] Work Phone: Start: 08-19-2023 End: 08-19-2023 Patient encounter procedure [facility] Physician [facility] Work Phone: Start: 08-06-2023 ambulatory [facility] Start: 07-02-2023 End: 07-02-2023 ambulatory [facility] Work Phone: Start: 07-02-2023 End: 07-02-2023 Patient encounter procedure [facility] Work Phone: Start: 06-17-2023 ambulatory [facility] Start: 06-16-2023 End: 06-16-2023 ambulatory PROSPER TRAN Not Available Start: 06-04-2023 End: 06-05-2023 ambulatory [facility] Start: 05-28-2023 End: 05-28-2023 ambulatory JUDIE YOUSSEF Not Available Start: 05-22-2023 End: 05-22-2023 ambulatory CARA DUBOIS Not Available Start: 05-07-2023 End: 05-07-2023 Patient encounter procedure MD Pedro Barragan Work Phone: [facility] Work Phone: Start: 05-07-2023 End: 05-07-2023 ambulatory MD Pedro Barragan Work Phone: [facility] Work Phone: Start: 04-29-2023 Chart abstracting Pedro Barragan MD Work Phone: [facility] Start: 04-29-2023 End: 04-29-2023 ambulatory PEDRO BARRAGAN Not Available Start: 04-28-2023 Non-patient / Non-visit [facility] Physician [facility] Professional [employer] Work Phone: Start: 04-22-2023 End: 04-22-2023 ambulatory Michelle Murrell Other [facility] Other Start: 04-22-2023 Office outpatient vi sit 15 minutes Michelle Murrell [facility] Start: 04-22-2023 End: 04-22-2023 Patient encounter procedure MD Pedro Barragan Work Phone: [facility]- Start: 04-04-2023 End: 04-04-2023 ambulatory Saúl Nichole Other [facility] Other Start: 04-04-2023 Telephone encounter [facility] Start: 03-31-2023 End: 03-31-2023 ambulatory Saúl Nichole Other [facility] Other Start: 03-31-2023 Telephone encounter Saúl [facility] Start: 03-19-2023 End: 03-19-2023 ambulatory Saúl Nichole Other [facility] Other Start: 03-19-2023 Telephone encounter Saúl [employer] Start: 03-12-2023 Nutrition therapy Saúl Nichole [facility] Start: 03-12-2023 Registered Recurring MD Pedro Barragan Work Phone: [facility] Work Phone: Start: 03-12-2023 End: 03-12-2023 ambulatory [employer] [facility] Other Start: 03-12-2023 End: 03-12-2023 Patient encounter procedure MD Pedro Barragan Work Phone: [facility] Work Phone: Start: 01-28-2023 Office outpatient vi sit 25 minutes [employer] [facility] Start: 01-28-2023 End: 01-28-2023 Patient encounter procedure MD Pedro Barragan Work Phone: [facility] Work Phone: Start: 01-28-2023 End: 01-28-2023 ambulatory MD Pedro Barragan Work Phone: [facility] Work Phone: Start: 11-26-2022 End: 11-26-2022 ambulatory YOBANY [facility] Start: 10-04-2021 End: 10-05-2021 ambulatory PEDRO BARRAGAN Facility:[facility] Start: 10-03-2021 Encounter for preprocedural laboratory examination DAVE BUENROSTRO [facility] Start: 10-02-2021 End: 10-03-[address] RENE SOTO Facility: Start: 10-02-2021 End: 10-03-2021 Encounter for preprocedural laboratory examination DR RENE SOTO Facility: Start: 03-28-2021 End: 03-29-[address] RENE SOTO Facility:[facility] Start: 02-26-2021 End: 02-27-[address] RENE SOTO Facility:[facility] Start: 02-06-2021 End: 02-06-2021 ambulatory DAVE CRISTOPHER Facility: Procedures Date Procedure Procedure Detail Performing Clinician Start: 09-01-2023 Pulse volume recorder pneumoplethysmography MD Pedro Barragan Work Phone: Start: 01-28-2023 Plain X-ray of left hip MD Pedro Barragan Work Phone: Start: 01-28-2023 X-ray of lumbar spine, six views including bending views MD Pedro Barragan Work Phone: Start: 12-24-2017 Colonoscopy Pedro Barragan MD Work Phone: Plan of Treatment Date Care Activity Detail Author Start: 12-25-2027 Screening for malignant neoplasm of colon [facility] Start: 05-02-2024 Glaucoma screening Diabetes: Retinopathy Screening [facility] Start: 09-04-2023 Patient referral [facility] Work Phone: Start: 09-01-2023 Pulse volume recorder pneumoplethysmography US arterial pvr rest LE [facility] Start: 09-01-2023 [facility] Start: 08-20-2023 Patient referral [facility] Work Phone: Start: 05-21-2023 End: 05-21-2023 Clinical Support 05/21/2023 8:00 AM EST Clinical Support [facility] [address] [facility] [address] [place] [id number] Cara Dubois, [facility] [address] [place] [address] [facility] Start: 04-29-2023 End: 04-29-2023 Patient encounter procedure 04/29/2023 11:15 AM EST Office Visit [facility] [address] [facility] [address] [place] [id number] Pedro Barragan MD [address] [facility] [address] [place] [address] [facility] Start: 04-03-2023 Medicare Annual Wellness (AWV) Medicare Annual Wellness (AWV) [facility] Start: 12-05-2022 Hemoglobin A1c measurement Diabetes: Hemoglobin A1C [facility] Start: 01-08-1971 Urine screening for protein Diabetes: Urine Protein Screening [facility] Start: 1950 Screening for malignant neoplasm of colon [facility] Patient referral [facility] Work Phone: [facility] Immunizations Immunization Date Immunization Notes Care Provider Fa cili 12-31-2022 Influenza, Seasonal, Quadrivalent, Adjuvanted Pedro Barragan MD Work Phone: [facility] 06-08-2022 zoster vaccine recombinant R silviano Barragan MD Work Phone: [facility] 04-03-2022 zoster vaccine recombinant Kurtis Barragan MD Work Phone: [facility] 02-22-[address] 12 Years And Older Pedro Barragan MD Work Phone: [facility] 01-07-2022 Influenza, Seasonal, Quadrivalent, Adjuvanted Pedro Barragan MD Work Phone: [facility] 12-18-2020 Influenza, Seasonal, Quadrivalent, Adjuvanted Pedro Barragan MD Work Phone: [facility] 03-31-2020 tetanus toxoid, redu marcella diphtheria toxoid, and acellular pertussis vaccine, adsorbed Pedro Barragan MD Work Phone: [facility] 12-06-2019 influenza, injectabl e, quadrivalent, preservative free Pedro Barragan MD Work Phone: [facility] 03-01-2019 pneumococcal polysaccharide vaccine, 23 valent Pedro Barragan MD Work Phone: [facility] 01-22-2019 influenza, high dose seasonal, preservative-free Pedro Barragan MD Work Phone: [facility] 03-02-2018 pneumococcal conjuga te vaccine, 13 valent Pedro Barragan MD Work Phone: [facility] 01-02-2018 Seasonal trivalent influenza vaccine, adjuvanted, preservative free Pedro Barragan MD Work Phone: [facility] 01-22-2017 influenza, high dose seasonal, preservative-free Pedro Barragan MD Work Phone: [facility] 01-11-2013 influenza, seasonal, injectable Pedro Barragan MD Work Phone: [facility] 2012 tetanus toxoid, redu marcella diphtheria toxoid, and acellular pertussis vaccine, adsorbed Pedro Barragan MD Work Phone: [facility] 09-11-2009 tetanus toxoid, redu marcella diphtheria toxoid, and acellular pertussis vaccine, adsorbed Pedro Barragan MD Work Phone: [facility] Payers Date Payer Category Payer Medicare [id number] 2. [id number] 2023 Self-pay 2016 Medicare [id number] 1959 Medicare [id number] 1959 Unknown [id number] 1950 Unknown [id number] 2.16.84 [id number] 1950 Unknown [id number] 2.16.84 [id number] 1950 Unknown [id number] 2.16.84 [id number] 1950 Unknown [id number] 2.16.84 [id number] 1950 Unknown [id number] 2.16.8 [id number] 1950 Unknown [id number] 2.16.84 0.1.885708.3.579.2.1259 1952 Unknown [id number] 2.16.84 0.1.302518.3.579.2.1259 1952 Unknown [id number] 2.16.84 0.1.942801.3.579.2.1259 1950 Unknown [id number] 2.16.84 0.1.981499.3.579.2.1259 1950 Unknown [id number] 2.16.84 [id number] Unknown Other1 (STD) [id number] Unknown [id number] 2.16.8 [id number] Unknown [id number] 2.16.8 [id number] Unknown [id number] 2.16.8 40.1.115880.3.579.2.531 Unknown [id number] 2.16.8 [id number] Social History Date Type Detail Facility Tobacco smoking status HIIS Unknown if ever smoked [facility] Work Phone: Start: 1950 Sex Assigned At Male F [facility] Start: 11-20-2022 Sex Assigned At N [employer] Other Start: 09-03-2022 Tobacco smoking status NHIS Never smoked tobacco [facility] Start: 09-03-2022 Tobacco use and exposure Smokeless tobacco non-user [facility] Start: 11-20-2022 Alcohol intake Current drinke r of alcohol (finding) [facility] Start: 11-20-2022 Alcohol intake [facility] Start: 09-25-2022 Alcohol Comment Monthly [facility] Start: 1950 Sex Assigned At Not on file [facility] Start: 09-29-2023 Tobacco smoking status NHIS Current some day smoker [facility] Clinical Notes 11-26-2022 to 08-20-2023 Note Date & Type Note Facility 08-20-2023 Hospital Discharge instructions Ambulatory OrdersReferral to Vascular Surgery Time Frame: 08/20/23, Location: None Selected [facility] [facility] Work Phone: 06-04-2023 Note [facility] CARDIOLOGY PROGR ESS NOTE HPI: Souleymane Wu is a 73 y.o. male Patient here for 6 mo follow up PAF, CAD, and hypertension. HPI 73 y.o. year old with past medical history of of a-fib, CAD, hyperlipidemia, hypertension, COPD, type 2 diabetes. Patient has come for follow-up. He had stress test in Nov 2022. He has lost 10# since last visit in Nov 2022. Yobany Moura CNP switched him from Lipitor to Crestor in Mar 2023 due to myalgias. Chest discomfort has resolved. He denies SOB, palpitations, lightheadedness/syncope, and bleeding on Eliquis. Review of Systems Constitutional: Positive for malaise/fatigue and weight loss (10# since Nov 2022). Cardiovascular: Positive for leg swelling. Musculoskeletal: Positive for arthritis and back pain. All other systems reviewed and are negative. Visit Vitals Ht 1.829 m (6') BMI 35.94 kg/m??? Smoking Status Former BSA 2.47 m??? Allergies Allergen Reactions Sulfamethoxazole-Trimethoprim Medications: Current Outpatient Medications on File Prior to Visit Medication Sig Dispense Refill acetaminophen-codeine (Tylenol w/ Codeine #3) 300-30 mg tablet Take 1 tablet by mouth every 6 (six) hours if needed. atorvastatin (Lipitor) 40 mg tablet Take 1 tablet (40 mg) by mouth at bedtime. 90 tablet 3 clopidogrel (Plavix) 75 mg tablet TAKE 1 TABLET BY MOUTH EVERY DAY 90 tablet 3 Eliquis 5 mg tablet TAKE 1 TABLET BY MOUTH TWICE A DAY 60 tablet 11 empagliflozin (Jardiance) 25 mg Take 25 mg by mouth in the morning. gabapentin (Neurontin) 100 mg capsule TAKE 1 CAP BY MOUTH IN THE MORNING, EVENING, AND BEFORE BEDTIME isosorbide mononitrate ER (Imdur) 30 mg 24 hr tablet Take 1 tablet (30 mg) by mouth once daily as directed. 90 tablet 3 lisinopril 20 mg tablet Take 1 tablet (20 mg) by mouth once daily as directed. 90 tablet 3 meloxicam (Mobic) 15 mg tablet TAKE 1 TABLET BY MOUTH EVERY DAY FOR 100 DAYS metFORMIN (Glucophage) 500 mg tablet TAKE 1 TABLET BY MOUTH EVERY DAY WITH A MEAL FOR 90 DAYS metoprolol tartrate (Lopressor) 50 mg tablet Take 1 tablet (50 mg) by mouth in the morning and at bedtime. 180 tablet 3 nitroglycerin (Nitrostat) 0.4 mg SL tablet nitroglycerin 0.4 mg sublingual tablet predniSONE (Deltasone) 10 mg tablet 4 TABS DAILY X4 DAYS, 3 TABS DAILY X4 DAYS, 2 TABS DAILY X4 DAYS, 1 TAB DAILY X4 DAYS rosuvastatin (Crestor) 20 mg tablet Take 1 tablet (20 mg) by mouth at bedtime. 90 tablet 3 spironolactone (Aldactone) 25 mg tablet TAKE 1/2 TABLET BY MOUTH IN THE MORNING 45 tablet 3 tiZANidine (Zanaflex) 4 mg tablet TAKE 1 TABLET (4 MG) BY MOUTH EVERY 6 HOURS IF NEEDED FOR MUSCLE SPASMS FOR UP TO 10 DAYS No current facility-administered medications on file prior to visit. Physical Exam: Constitutional: Appearance: Normal appearance. Without apparent distress HENT: Head: Normocephalic and atraumatic. Nose: Nose normal. Mouth/Throat: Mouth: Mucous membranes are moist. Eyes: Extraocular Movements: Extraocular movements intact. Conjunctiva/sclera: Conjunctivae normal. Neck: Vascular: No JVD. Cardiovascular: Rate and Rhythm: Normal rate and regular rhythm. Pulses: Dorsalis pedis pulses are 3 on the right side and 3on the left side. Posterior tibial pulses are 3 on the right side and 3 on the left side. Heart sounds: Normal heart sounds, S1 normal and S2 normal. Pulmonary: Effort: Pulmonary effort is normal. Breath sounds: Normal breath sounds. Abdominal: General: Bowel sounds are normal. Palpations: Abdomen is soft. Musculoskeletal: General: Normal range of motion. Cervical back: Normal range of motion. Right lower leg: No edema. Left lower leg: No edema. Skin: General: Skin is warm and dry. Capillary Refill: Capillary refill takes less than 2 seconds. Neurological: General: No focal deficit present. Mental Status: he is alert and oriented to person, place, and time. Psychiatric: Mood and Affect: Mood normal. Behavior: Behavior normal. Thought Content: Thought content normal. Judgment: Judgment normal. Labs: 04/28/23 CBC normal, Renal and liver function normal. Lipid level very well controlled Ref Range & Units 1 mo ago WHITE BLOOD CELL COUNT 3.8 - 10.8 Thousand/uL 5.4 RED BLOOD CELL COUNT 4.20 - 5.80 Million/uL 5.27 HEMOGLOBIN 13.2 - 17.1 g/dL 16.4 HEMATOCRIT 38.5 - 50.0 % 48.5 MCV 80.0 - 100.0 fL 92.0 MCH 27.0 - 33.0 pg 31.1 MCHC 32.0 - 36.0 g/dL 33.8 RDW 11.0 - 15.0 % 13.5 PLATELET COUNT 140 - 400 Thousand/uL 181 Component Ref Range & Units 1 mo ago Comments Glucose 65 - 99 mg/dL 105 High BUN 7 - 25 mg/dL 18 Creatinine 0.70 - 1.28 mg/dL 0.89 EGFR > OR = 60 mL/min/1.73m2 92 BUN/CREATININE RATIO 6 - 22 (calc) SEE NOTE: Not Reported: BUN and Creatinine are within reference range. Sodium 135 - 146 mmol/L 140 Potassium, Bld 3.5 - 5.3 mmol/L 4.4 Chloride 98 - 110 mmol/L 107 Carbon Dioxide 20 - 32 mmol/L 25 Calcium 8.6 (more content not included)... [facility] 06-04-2023 Note Patient here for 6 m o follow up PAF, CAD, and hypertension. He had stress test in Nov 2022. He has lost 10# since last visit in Nov 2022. Yobany Moura CNP switched him from Lipitor to Crestor in Mar 2023 due to myalgias. Chest discomfort has resolved. He denies SOB, palpitations, lightheadedness/syncope, and bleeding on Eliquis. Review of Systems Constitutional: Positive for malaise/fatigue and weight loss (10# since Nov 2022). Cardiovascular: Positive for leg swelling. Musculoskeletal: Positive for arthritis and back pain. All other systems reviewed and are negative. [facility] 06-04-2023 Note Coronary artery dise ase is stable Continue GDMT- ASA, plavix, lipitor, imdur and metoprolol continue risk factor modifications- heart healthy diet, regular exercise as tolerated and continue all medications. [facility] 06-04-2023 Note Hypertension is well controlled Continue lisinopril, metoprolol, aldactone [facility] 06-04-2023 Note [id number] Vasc= 3 Continue eliquis anticoagulation and metoprolol for rate control [facility] 06-04-2023 Note Lipid abnormalities are very well controlled- c/o myalgias on lipitor and continued on crestor therefore will change to pravastatin 20 mg daily and monitor lipid level in 3-6 months. Goal LDL < 70 and currently 42. [facility] 04-22-2023 Evaluation note Encounter Date Diagnosis Assessment Notes Mar, Lumbar spondylosis (ICD-10 - M47.816) Mr Wu is doing well with conservative therapy. Has lost 13lbs in which he feels has help the pain in his back. Will continue to do conservative therapy. Follow up in 6 months. Mar, Lumbar disc disorder (ICD-10 - M51.9) Mar, BMI 37.0-37.9, adult (ICD-10 - Z68.37) [facility] Other 01-08-2024 Evaluation note* Encounter Date Diagnosis Assessment Notes Treatment Notes Treatment Clinical Notes Mar, Type 2 diabetes mellitus (ICD-10 - E11.9) [facility] Other 12-20-2023 Evaluation note* Encounter Date Diagnosis Assessment Notes Treatment Notes Treatment Clinical Notes Feb, Dietary surveillance and counseling (ICD-10 - Z71.3) Discussed in detail high-protein, high-fiber, low-fat nutrition plan favoring calorie deficit and lean tissue mass preservation. Feb, Obesity, Class II, BMI 35-39.9 (ICD-10 - E66.01) Consultation date 03-12-2023, weight (pounds): 274.7Plan is to take a weight centric approach to patient care in the treatment of excess adiposity and patient's weight related comorbidities.-Disc ussed treatment options including lifestyle interventions, such as calorie reduction and physical activity, and use of medications as an adjunct to amplify adherence to healthy behavior change-Discussed benefits, risks and side effects of medication. After informed discussion, patient would like to proceedOrders:-Init iate Ozempic 0.25 mg once weekly -Type II diabetes mellitus -CAD single stent 2014 -Follow up in clinic in 8 weeksThis note was created with voice recognition software. Please excuse errors in funeral professional. Feb, Exercise counseling (ICD-10 - Z71.89) Absolute HGS at time of consultation (pounds): 56.9Discussed in detail exercise interventions to promote lean tissue mass preservation during calorie restriction. Feb, Type 2 diabetes mellitus (ICD-10 - E11.9) 15-year history Adding GLP-1 RA. Patient agreeable Feb, ASCVD (arteriosclerotic cardiovascular disease) (ICD-10 - I25.10) 2014 LAD single stent [facility] Other 11-07-2023 Evaluation note* Encounter Date Diagnosis Assessment Notes Treatment Notes Treatment Clinical Notes Jan, Lumbar spondylosis (ICD-10 - M47.816) I independently reviewed the MRI of the lumbar spine and the report that shows a left L4-5 disc herniation consistent with a left L5 radiculopathy. After stopping the gabapentin pain has improved. WIll order xray lumbar 6 view and Xray left hip. Discussion of conservative therapy, will refer to Dr Reddy pain managment. Pharmacological management will continue current medication as prescribed we will add lidocaine patches and [id number] Thermo patches. Discussion of weight, BMI >35, will refer to weight management. Will follow up in 12 weeks. Jan, Lumbar disc disorder (ICD-10 - M51.9) Jan, Left hip pain (ICD-10 - M25.552) Jan, BMI 37.0-37.9, adult (ICD-10 - Z68.37) [facility] Other 09-05-2023 NoteUT Electrophysiology Note [facility] Reason for Follow up: a-fib, loop data, 6 month follow up HPI: Souleymane Wu is a 72 y.o. year old with past medical history of of a-fib, CAD, hyperlipidemia, hypertension, COPD, type 2 diabetes. Patient has come for follow-up. Loop data review shows no A-fib episodes have been noted. He has had no rhythms seen on loop but has had some chest discomfort with exertion Last cath Previous HPI: cc; Afib Patient is doing well and is focusing on weight loss. Device check performed on May 2021 showed shows no episodes of A. fib. The device is reached [employer] since April 2021. He is concerned about the cost of Eliquis and wants to come off that. HPI: 62 with a past medical history of CAD s/p CPI to LAD, hyperlipidemia, hypertension, COPD, diabetes was previously seen by Dr. Che and had a loop monitor placed for AF surveillance. Since that time he has not been told of any A. fib episodes but has been placed continued on the Eliquis and Plavix. He has been actively involved in walking at least 4 times a week taking approximately 2 miles daily when he does. He does have occasional chest pain which is relieved with the use of nitroglycerin pills. No palpitations experienced no syncope noted. Echocardiogram 09/13/2020 shows EF of 60% left atrium is normal size mild atrial dilatation PA pressures were 25 mmHg Nuclear stress test that was done on 03/27/2020 showed no evidence of reversible ischemia fixed defect was noted suggestive of the diaphragmatic continuation versus inferior wall scar normal he was seen Device check that was performed on 03/10/2020 reveals a Linq device which was implanted on 09/23/2017. No A. fib episodes seen except about 90 episods in September 2018. No Strips available for review but other times it was just artifact documented as AF. So likely these were artifacts. PMH: Past Medical History: Diagnosis Date Atrial fibrillation (CMS/HCC) Coronary artery disease Diabetes mellitus (CMS/HCC) Hypertension Sleep apnea PSH: Past Surgical History: Procedure Laterality Date CARDIAC CATHETERIZATION CARPAL TUNNEL RELEASE 02/21/2022 SHOULDER SURGERY TONSILLECTOMY SH: Social Determinants of Health Tobacco Use: Medium Risk (06/11/2022) Patient History Smoking Tobacco Use: Former Smokeless Tobacco Use: Never Passive Exposure: Not on file Alcohol Use: Not on file Financial Resource Strain: Not on file Food Insecurity: Not on file Transportation Needs: Not on file Physical Activity: Not on file Stress: Not on file Social Connections: Not on file Intimate Partner Violence: Not on file Depression: Not on file Housing Stability: Not on file Allergies: Allergies Allergen Reactions Sulfamethoxazole-Trimethoprim Weight: 120kg Meds: Current Outpatient Medications on File Prior to Visit Medication Sig Dispense Refill acetaminophen-codeine (Tylenol w/ Codeine #3) 300-30 mg tablet Take 1 tablet by mouth every 6 (six) hours if needed. atorvastatin (Lipitor) 40 mg tablet Take 1 tablet (40 mg) by mouth at bedtime. 90 tablet 3 clopidogrel (Plavix) 75 mg tablet TAKE 1 TABLET BY MOUTH EVERY DAY 90 tablet 3 Eliquis 5 mg tablet TAKE 1 TABLET BY MOUTH TWICE A DAY 60 tablet 11 empagliflozin (Jardiance) 25 mg Take 25 mg by mouth in the morning. gabapentin (Neurontin) 100 mg capsule TAKE 1 CAP BY MOUTH IN THE MORNING, EVENING, AND BEFORE BEDTIME isosorbide mononitrate ER (Imdur) 30 mg 24 hr tablet Take 1 tablet (30 mg) by mouth once daily as directed. 90 tablet 3 lisinopril 20 mg tablet Take 1 tablet (20 mg) by mouth once daily as directed. 90 tablet 3 meloxicam (Mobic) 15 mg tablet TAKE 1 TABLET BY MOUTH EVERY DAY FOR 100 DAYS metFORMIN (Glucophage) 500 mg tablet TAKE 1 TABLET BY MOUTH EVERY DAY WITH A MEAL FOR 90 DAYS metoprolol tartrate (Lopressor) 50 mg tablet Take 1 tablet (50 mg) by mouth in the morning and at bedtime. 180 tablet 3 nitroglycerin (Nitrostat) 0.4 mg SL tablet nitroglycerin 0.4 mg sublingual tablet predniSONE (Deltasone) 10 mg tablet 4 TABS DAILY X4 DAYS, 3 TABS DAILY X4 DAYS, 2 TABS DAILY X4 DAYS, 1 TAB DAILY X4 DAYS spironolactone (Aldactone) 25 mg tablet Take 0.5 tablets (12.5 mg) by mouth in the morning. 45 tablet 3 tiZANidine (Zanaflex) 4 mg tablet TAKE 1 TABLET (4 MG) BY MOUTH EVERY 6 HOURS IF NEEDED FOR MUSCLE SPASMS FOR UP TO 10 DAYS [DISCONTINUED] albuterol 90 mcg/actuation inhaler Ventolin HFA 90 mcg/actuation aerosol inhaler Inhale by inhalation route as directed for 25 days. [DISCONTINUED] tamsulosin (Flomax) 0.4 mg 24 hr capsule TAKE 1 CAPSULE BY MOUTH EVERY DAY FOR 90 DAYS No current facility-administered medications on file prior to visit. ROS: Cardio Basic Cardiovascular Symptoms: no lightheadedness, +mild leg edema, no syncope, no orthopnea, no PND, (more content not included)...[facility]09-05-2023 NotePatient here for 6 mo follow up PAF, hypertension, and CAD. Gets an intermittent chest discomfort , which he says is not new or different . Denies SOB and palpitations. Review of Systems Constitutional: Positive for malaise/fatigue. Cardiovascular: Positive for chest pain ( discomfort ). Musculoskeletal: Positive for arthritis and back pain. All other systems reviewed and are negative.[facility] Evaluation noteNo assessment information availableVan [facility] Work Phone: Evaluation noteNo InformationNort imo.im Other Evaluation note* Diagnosis Onset Date Resolution Status ASCVD (arteriosclerotic cardiovascular disease) acute Dietary surveillance and counseling acute Exercise counseling acute Obesity, Class II, BMI 35-39.9 acute Type 2 diabetes mellitus [facility] Work Phone: Evaluation note* Diagnosis Onset Date Resolution Status ASCVD (arteriosclerotic cardiovascular disease) acute Dietary surveillance and counseling acute Exercise counseling acute Obesity, Class II, BMI 35-39.9 acute Type 2 diabetes mellitus acu te ASCVD (arteriosclerotic cardiovascular disease) acute Dietary surveillance and counseling acute Exercise counseling acute Obesity, Class II, BMI 35-39.9 acute Type 2 diabetes mellitus acu te [facility] Work Phone: Evaluation note* Diagnosis Onset Date Resolution Status ASCVD (arteriosclerotic cardiovascular disease) acute Dietary surveillance and counseling acute Exercise counseling acute Obesity, Class II, BMI 35-39.9 acute Type 2 diabetes mellitus acu te Left lumbar radiculopathy ac [place] Lumbar stenosis acute Vascular claudication acute [facility] Work Phone: evaluation note* Diagnosis Onset Date Resolution Status ASCVD (arteriosclerotic cardiovascular disease) acute Dietary surveillance and counseling acute Exercise counseling acute Obesity, Class II, BMI 35-39.9 acute Type 2 diabetes mellitus acu te Left lumbar radiculopathy ac [place] Lumbar stenosis acute Vascular claudication acute Left lumbar radiculopathy ac [place] Lumbar stenosis acute [facility] Work Phone: Evaluation note* Diagnosis Onset Date Resolution Status ASCVD (arteriosclerotic cardiovascular disease) acute Dietary surveillance and counseling acute Exercise counseling acute Obesity, Class II, BMI 35-39.9 acute Type 2 diabetes mellitus acu te Left lumbar radiculopathy ac [place] Lumbar stenosis acute Vascular claudication acute Left lumbar radiculopathy ac [place] Lumbar stenosis acute ASCVD (arteriosclerotic cardiovascular disease) acute Dietary surveillance and counseling acute Exercise counseling acute Obesity, Class II, BMI 35-39.9 acute Type 2 diabetes mellitus acu te [facility] Work Phone: Evaluation note* Diagnosis Onset Date Resolution Status ASCVD (arteriosclerotic cardiovascular disease) acute Dietary surveillance and counseling acute Exercise counseling acute Obesity, Class II, BMI 35-39.9 acute Type 2 diabetes mellitus acu te Left lumbar radiculopathy ac [place] Lumbar stenosis acute Vascular claudication acute Left lumbar radiculopathy ac [place] Lumbar stenosis acute ASCVD (arteriosclerotic cardiovascular disease) acute Dietary surveillance and counseling acute Exercise counseling acute Obesity, Class II, BMI 35-39.9 acute Type 2 diabetes mellitus acu te Lumbar radiculopathy acute Lumbosacral spondylosis acut e Other chronic pain acute [facility] Work Phone: Evaluation note* Diagnosis Onset Date Resolution Status Left lumbar radiculopathy ac [place] Lumbar stenosis acute Vascular claudication acute Left lumbar radiculopathy ac [place] Lumbar stenosis acute ASCVD (arteriosclerotic cardiovascular disease) acute Dietary surveillance and counseling acute Exercise counseling acute Obesity, Class II, BMI 35-39.9 acute Type 2 diabetes mellitus acu te Lumbar radiculopathy acute Lumbosacral spondylosis acut e Other chronic pain acute [facility] Work Phone: Evaluation note* Diagnosis Onset Date Resolution Status Left lumbar radiculopathy ac [place] Lumbar stenosis acute Vascular claudication acute Left lumbar radiculopathy ac [place] Lumbar stenosis acute ASCVD (arteriosclerotic cardiovascular disease) acute Dietary surveillance and counseling acute Exercise counseling acute Obesity, Class II, BMI 35-39.9 acute Type 2 diabetes mellitus acu te Lumbar radiculopathy acute Lumbosacral spondylosis acut e Other chronic pain acute Lumbar radiculopathy acute Lumbosacral spondylosis acut e Other chronic pain acute [facility] Work Phone: History general Narrative - Reported* Type Description Date Medical History diabetes mallitus Medical History heart disease Medical History Hypertension Medical History obesity Medical History Atrial fibrillation Surgical History left shoulder seperation Hospitalization History see above [facility] Other History general Narrative - Reported* Type Description Date Medical History diabetes mallitus Medical History heart disease Medical History Hypertension Medical History obesity Medical History Atrial fibrillation Surgical History left shoulder seperation Surgical History A-fib monitor Hospitalization History see above Hospitalization History Heart attack 2014 [facility] Other Hospital Discharge instructionsAmbulatory Orders* Referral to Pain Management Location: None Selected [facility] Work Phone: Summary Purpose Family History Relationship Condition Age at Onset Recorded Date/T fredy brother Family history of thyroid disease Unknown father Malignant neoplasm Unknown Malignant neoplasm of urinary bladder Unk nown Unknown Not Specified Hypertension Unknown Heart disease Unknown Malignant neoplasm of breast Unknown Malignant neoplasm Unknown Relationship Condition Age at Onset Recorded Date/T fredy brother Family history of thyroid disease Unknown father Malignant neoplasm Unknown Malignant neoplasm of urinary bladder Unk nown Unknown mother Hypertension Unknown Heart disease Unknown Malignant neoplasm of breast Unknown Malignant neoplasm Unknown Relationship Condition Age at Onset Recorded Date/T fredy brother Family history of thyroid disease Unknown father Malignant neoplasm of urinary bladder Unk nown Unknown mother Hypertension Unknown Heart disease Unknown Malignant neoplasm of breast Unknown Advance Directives Advance Directive Response Recorded Date/ Time Advance Directives No January 28, 2023 9:59am Advance Directive Response Recorded Date/ Time Advance Directives No January 28, 2023 10:59am Chief Complaint and Reason for Visit Chief Complaint M17.816 Chief Complaint Initial Wmn Obesity 12 Wk F/U, Pain Mgmt, Wt Mgmt Reason for Visit ASCVD (arteriosclero tic cardiovascular disease) Dietary surveillance and counseling Exercise counseling Obesity, Class II, BMI 35-39.9 Type 2 diabetes mellitus Chief Complaint 12 Wk F/U, Pain Mgmt , Wt Mgmt Reason for Visit ASCVD (arteriosclero tic cardiovascular disease) Dietary surveillance and counseling Exercise counseling Obesity, Class II, BMI 35-39.9 Type 2 diabetes mellitus ASCVD (arteriosclerotic cardiovascular disease) Dietary surveillance and counseling Exercise counseling Obesity, Class II, BMI 35-39.9 Type 2 diabetes mellitus Chief Complaint increase low back pa in Reason for Visit ASCVD (arteriosclero tic cardiovascular disease) Dietary surveillance and counseling Exercise counseling Obesity, Class II, BMI 35-39.9 Type 2 diabetes mellitus Left lumbar radiculopathy Lumbar stenosis Vascular claudication Chief Complaint increase low back pa in I73.9 Reason for Visit ASCVD (arteriosclero tic cardiovascular disease) Dietary surveillance and counseling Exercise counseling Obesity, Class II, BMI 35-39.9 Type 2 diabetes mellitus Left lumbar radiculopathy Lumbar stenosis Vascular claudication Chief Complaint increase low back pa in I73.9 f/u low back pain Reason for Visit ASCVD (arteriosclero tic cardiovascular disease) Dietary surveillance and counseling Exercise counseling Obesity, Class II, BMI 35-39.9 Type 2 diabetes mellitus Left lumbar radiculopathy Lumbar stenosis Vascular claudication Left lumbar radiculopathy Lumbar stenosis Chief Complaint increase low back pa in I73.9 f/u low back pain Reason for Visit ASCVD (arteriosclero tic cardiovascular disease) Dietary surveillance and counseling Exercise counseling Obesity, Class II, BMI 35-39.9 Type 2 diabetes mellitus Left lumbar radiculopathy Lumbar stenosis Vascular claudication Left lumbar radiculopathy Lumbar stenosis ASCVD (arteriosclerotic cardiovascular disease) Dietary surveillance and counseling Exercise counseling Obesity, Class II, BMI 35-39.9 Type 2 diabetes mellitus Chief Complaint increase low back pa in I73.9 f/u low back pain REFF BY DR. VERNON GARCIA Reason for Visit ASCVD (arteriosclero tic cardiovascular disease) Dietary surveillance and counseling Exercise counseling Obesity, Class II, BMI 35-39.9 Type 2 diabetes mellitus Left lumbar radiculopathy Lumbar stenosis Vascular claudication Left lumbar radiculopathy Lumbar stenosis ASCVD (arteriosclerotic cardiovascular disease) Dietary surveillance and counseling Exercise counseling Obesity, Class II, BMI 35-39.9 Type 2 diabetes mellitus Lumbar radiculopathy Lumbosacral spondylosis Other chronic pain Chief Complaint increase low back pa in I73.9 f/u low back pain REFF BY DR. VERNON GARCIA PLAVIX/ELIQUIS*LEFT L3-4 AND L4-5 TRANSFORAMINAL Reason for Visit Left lumbar radiculo juan Lumbar stenosis Vascular claudication Left lumbar radiculopathy Lumbar stenosis ASCVD (arteriosclerotic cardiovascular disease) Dietary surveillance and counseling Exercise counseling Obesity, Class II, BMI 35-39.9 Type 2 diabetes mellitus Lumbar radiculopathy Lumbosacral spondylosis Other chronic pain Chief Complaint increase low back pa in I73.9 f/u low back pain REFF BY DR. VERNON GARCIA PLAVIX/ELIQUIS*LEFT L3-4 AND L4-5 TRANSFORAMINAL FOLLOW UP AFTER LEFT LTR Reason for Visit Left lumbar radiculo juan Lumbar stenosis Vascular claudication Left lumbar radiculopathy Lumbar stenosis ASCVD (arteriosclerotic cardiovascular disease) Dietary surveillance and counseling Exercise counseling Obesity, Class II, BMI 35-39.9 Type 2 diabetes mellitus Lumbar radiculopathy Lumbosacral spondylosis Other chronic pain Lumbar radiculopathy Lumbosacral spondylosis Other chronic pain Chief Complaint increase low back pa in I73.9 f/u low back pain REFF BY DR. VERNON GARCIA PLAVIX/ELIQUIS*LEFT L3-4 AND L4-5 TRANSFORAMINAL FOLLOW UP AFTER LEFT LTR surgical consult Reason for Visit Left lumbar radiculo juan Lumbar stenosis Vascular claudication Left lumbar radiculopathy Lumbar stenosis ASCVD (arteriosclerotic cardiovascular disease) Dietary surveillance and counseling Exercise counseling Obesity, Class II, BMI 35-39.9 Type 2 diabetes mellitus Lumbar radiculopathy Lumbosacral spondylosis Other chronic pain Lumbar radiculopathy Lumbosacral spondylosis Other chronic pain Reason for Referral Reason evaluate and treat Diagnosis 1 Lumbar spondylosis ( M47.816) Referral Organization [facility] Referring Provider First Name Michelle Referring Provider Last Name Murrell Referring Provider Specialty Nurse Pract itioner Referred Organization [facility] Referred Provider Myrna Stewart Referred Address [address], [place],[address] Referred Provider Specialty Pain Medicin e Referral Priority Routine Reason Evaluate and treat Diagnosis 1 Lumbar spondylosis ( M47.816) Referral Organization [facility] Referring Provider First Name Michelle Referring Provider Last Name Nyasia Referring Provider Specialty Nurse Pract itbogdanr Referred Organization [facility] Referred Address [address], [place],[address] Referred Provider Specialty Internal Med icine Referral Priority Routine Additional Source Comments (unrecognized sect ion and content) No Status Records FoundNo Status Records FoundNo Status Records FoundNo Status Records FoundNo Status Records FoundNo Status Records Found INFORMATION SOURCE (unrecogn ized section and content) DATE CREATED AUTHOR 07/04/2021 [facility] DATE CREATED AUTHOR AUTHOR'S ORGANIZ ATION 10/09/2021 [facility] DATE CREATED AUTHOR AUTHOR'S ORGANIZ ATION 10/10/2021 [facility] DATE CREATED AUTHOR AUTHOR'S ORGANIZ ATION 09/02/2023 [facility] DATE CREATED AUTHOR AUTHOR'S ORGANIZ ATION 09/03/2023 [facility] DATE CREATED AUTHOR AUTHOR'S ORGANIZ ATION 10/30/2023 [facility]ists EPIC Care Teams (unrecognized sec tion and content) Team Status: Active Member Role Status Dates Pedro Barragan MD Primary Care Provider Active Team Status: Inactive Member Role Status Dates Vernon Garcia MD Attending Provider Active Pedro Barragan MD Primary Care Provider Active Customer Support Consultant Relationship Specialty Start Date End Date Pedro Barragan MD [address] [facility] [address] [place] [address] PCP - ACO Reach 08/15/22 Pedro Barragan MD [address] [facility] [address] [place] [address] PCP - General Family Medicine 09/02/22 Team Status: Inactive Member Role Status Jayde Nichole DO Attending Provider Active St art: March 12, 2023 End: March 12, 2023 Team Status: Active Member Role Status Jayde Barragan MD Primary Care Provider Active S tart: March 12, 2023 CHAITANYA Christian Attending Provider Active Start: March 12, 2023 Team Status: Inactive Member Role Status CHAITANYA Ackerman Attending Provider Active Start: April 22, 2023 End: April 22, 2023 Team Status: Inactive Member Role Status Jayde Barragan MD Primary Care Provider Active S tart: May 07, 2023 End: May 07, 2023 Saúl Nichole DO Attending Provider Active St art: May 07, 2023 End: May 07, 2023 Team Status: Active Member Role Status Jayde Barragan MD Primary Care Provide r, Attending Provider Active Start: April 28, 2023 Team Status: Inactive Member Role Status Jayde Barragan MD Primary Care Provider Active S tart: July 02, 2023 End: July 02, 2023 Saúl Nichole DO Attending Provider Active St art: July 02, 2023 End: July 02, 2023 Team Status: Inactive Member Role Status Jayde Barragan MD Primary Care Provider Active S tart: August 19, 2023 End: August 19, 2023 Vernon Garcia MD Attending Provider Active Star t: August 19, 2023 End: August 19, 2023 Team Status: Inactive Member Role Status Jayde Barragan MD Primary Care Provider Active S tart: September 01, 2023 End: September 01, 2023 Vernon Garcia MD Attending Provider Active Star t: September 01, 2023 End: September 01, 2023 Team Status: Inactive Member Role Status Jayde Barragan MD Primary Care Provider Active S tart: September 04, 2023 End: September 04, 2023 Vernon Garcia MD Attending Provider Active Star t: September 04, 2023 End: September 04, 2023 Team Status: Inactive Member Role Status Jayde Barragan MD Primary Care Provider Active S tart: September 17, 2023 End: September 17, 2023 Saúl Nichole DO Attending Provider Active St art: September 17, 2023 End: September 17, 2023 Team Status: Inactive Member Role Status Jayde Barragan MD Primary Care Provider Active S tart: September 29, 2023 End: September 29, 2023 Tito Bailey MD Attending Provider Active Sta rt: September 29, 2023 End: September 29, 2023 Vernon Garcia MD Referring Provider Active Star t: September 29, 2023 End: September 29, 2023 Team Status: Inactive Member Role Status Jayde Barragan MD Primary Care Provider Active S tart: October 16, 2023 End: October 16, 2023 Tito Bailey MD Attending Provider Active Sta rt: October 16, 2023 End: October 16, 2023 Team Status: Active Member Role Status Jayde Barragan MD Primary Care Provider Active S tart: October 16, 2023 Tito Bailey MD Attending Provider Active Sta rt: October 16, 2023 Team Status: Inactive Member Role Status Jayde Barragan MD Primary Care Provider Active S tart: October 23, 2023 End: October 23, 2023 Tito Bailey MD Attending Provider Active Sta rt: October 23, 2023 End: October 23, 2023 Team Status: Inactive Member Role Status Jayde Barragan MD Primary Care Provider Active S tart: November 04, 2023 End: November 04, 2023 Vernon Garcia MD Attending Provider Active Star t: November 04, 2023 End: November 04, 2023 Goals (unrecognized section and content) Goals may be documented in a n alternate sectionNo InformationNo InformationNo InformationNo InformationNo InformationNo InformationGoals may be documented in an alternate sectionGoals may be documented in an alternate sectionGoals may be documented in an alternate sectionGoals may be documented in an alternate sectionGoals may be documented in an alternate sectionGoals may be documented in an alternate sectionGoals may be documented in an alternate sectionGoals may be documented in an alternate sectionGoals may be documented in an alternate sectionGoals may be documented in an alternate sectionGoals may be documented in an alternate section REASON FOR VISIT (unrecogniz ed section and content) f/u possible surgical consul tinitial WMNWeight Management office noteAS Ozempic dosage - lmDCS Ozempic [id number] WK F/U, pain mgmt, wt mgmt FOR RECORDS PERTAINING TO PATIENTS WHO ARE OR HAVE BEEN ENROLLED IN A CHEMICAL DEPENDENCY/SUBSTANCEABUSE PROGRAM, SOME INFORMATION MAY BE OMITTED. This clinical summary was aggregated from multiple sources. Caution should be exercised in using it in the provision of clinical care. This summary normalizes information from multiple sources, and as a consequence, information in this document may materially change the coding, format and clinical context of patient data. In addition, data may be omitted in some cases. CLINICAL DECISIONS SHOULD BE BASED ON THE PRIMARY CLINICAL RECORDS. [facility]. provides no warranty or guarantee of the accuracy or completeness of information in this document.
--- NOTE | 2023-11-07 07:15 | NM_ITS ---
Patient Name: MACIEL PEREZ MR#: [id number] : 1950 Exam Date: 11/07/2023 Ordering Doctor: DR KADE BARRAGAN M.D. RADIOLOGY REPORT PROCEDURE: NM STEPH PERF SPECT REST STR COMPARISON: NM STEPH PERF SPECT REST STR, 12/16/2022. INDICATIONS: CHEST PAIN TECHNIQUE: Exam Description: Rest/Stress one day protocol gated SPECT Rest Imagin.1 mCi Tc-99m Cardiolite IV on 11/07/2023 Stress Imaging 29.9 mCi Tc-99m Cardiolite IV on 11/07/2023 Exercise Protocol: Papito Heart Rate (bpm): Rest: 62 Max: 131 PMHR: 87 Blood Pressure: Rest: 144/84 Max: 196/78 Exercise Time: Minutes: 5 Seconds: 32 Stage Reached: Stage: 2 Mets 7.0 Symptoms: Rest and peak stress ECG findings were pending and the exercise portion of the study was pending per attending physician Dr. Leon . For more details please see separate cardiac stress test report. FINDINGS: QUALITY OF STUDY: PERFUSION DEFECT: LOCATION: Basal inferior. Mid-inferior. Apical inferior. SIZE: Medium (3-4 segments). SEVERITY: Mild. TYPE: Persistent. WALL MOTION: Normal. LV SIZE: Normal. 116 mL. TID / TCD: None; 0.9 LVEF: Normal. Calculated EF 71%. SUMMARY: Myocardial perfusion imaging study has ABNORMAL findings. CONCLUSION: 1. Moderate-sized area of mildly decreased uptake in the inferior wall, RCA distribution 2. No reversible ischemia 3. Pending exercise test results Dictated by: Deon Burns MD on 11/10/2023 at 08:04 Approved by: Deon Burns MD on 11/10/2023 at 08:05
--- NOTE | 2023-11-07 10:00 | PC.NURSE ---
Nursing Note Cardiac Stress Test Reviewed: Medication, allergies and patient history reviewed. Stress Test: [x ] Patient tolerated stress test well. [ ] Patient unable to tolerate walking on treadmill. Switched to Lexiscan stress test. [x ] No chest pain noted per patient [ ] Chest pain that resolved prior to leaving stress lab. [ ] No dyspnea noted. [ x] Dyspnea that resolved prior to leaving stress lab. [ x] Patient left stress lab asymptomatic and hemodynamically stable. [ ] Patient taken to the Emergency Room due to non-resolving symptoms following stress test. [x ] Patient achieved target heart rate. [ ] Patient unable to achieve target heart rate. [ ] Aminophylline administered as reversal agent to Lexiscan (Regadenoson). [ ] Nitro administered. Nursing Comments:Pt had cardiolite stress done. Pt tolerated well with no chest pain. Pt stated that Dyspnea and fatigue are normal for him with activity but since he lost weight it was not as bad as it used to be. Pt ambulated to cafeteria for breakfast.
== END 2023-11-07 07:12 | disposition home or self-care (01) ==
LOC: NM 07:12
PROVIDERS: PCP Physician Assistant; Visit Provider Family Medicine
DX: I25.119 Atherosclerotic heart disease of native coronary artery with unspecified angina pectoris (principal)
CPT/HCPCS: 78452; 93017; A9500

== ENCOUNTER 2023-11-20 06:54 | Outpatient (OUT) | payer MEDICARE, SELFPAY ==
--- NOTE | 2023-11-20 07:00 | CA_ITS ---
Patient Name: MACIEL PEREZ MR#: [id number] : 1950 Exam Date: 11/20/2023 Ordering Doctor: DR KADE BARRAGAN M.D. ECHOCARDIOGRAM REPORT PROCEDURE: CA ECHO DOPPLER COMPLETE INDICATIONS: Abnormal stress test, h/o NC, cardiac stents, hypertension, diabetes COMPARISON: None. DESCRIPTION: COMPLETE ECHOCARDIOGRAM Real-time transthoracic echocardiography with 2D, M-mode, spectral and color flow Doppler performed. QUALITY: Technical quality was good. LEFT VENTRICLE: Normal chamber size. Proximal septal hypertrophy (sigmoid septum). Normal systolic function. LV EF: Normal left ventricular ejection fraction, (55-60%). DIASTOLIC: Normal diastolic function. ATRIAL SEPTUM: LEFT ATRIUM: Normal chamber size. RIGHT ATRIUM: Normal chamber size. RIGHT VENTRICLE: Normal chamber size. Normal right ventricular systolic function. TRICUSPID VALVE: Normal mobility and thickness. No stenosis with mild regurgitation. No evidence of pulmonary hypertension. RVSP 34 mmHg MITRAL VALVE: Normal mobility and thickness. No evidence of mitral valve stenosis. There is no mitral annular calcification. No mitral regurgitation. AORTIC VALVE: Normal trileaflet appearance. No visible sclerosis. Normal leaflet mobility. No evidence of aortic valve stenosis. No aortic regurgitation. AORTIC ROOT: Normal diameter and appearance. Ascending aorta is normal in size. PULMONIC VALVE: Normal thickness and mobility. No stenosis. Mild regurgitation. PERICARDIUM: No evidence of pericardial effusion. IVC: Collapses with inspirations. PLEURA: CONCLUSION: 1. Normal left ventricular size and systolic function. LVEF is estimated at 55 to 60%. 2. Normal right ventricular size and systolic function. 3. Normal diastolic function. 4. No significant valvular dysfunction. 5. Normal right-sided pressures. 6. No pericardial effusion. Adult Echocardiography Procedure Report Left Ventricle LVEDD (3.7 - 5.6 cm): 4.25 cm LVESD (2.2 - 4.0 cm): 2.90 cm LVIVS thickness (0.6 - 1.2 cm): 1.34 cm LVPW thickness (0.5 - 1.0 cm): 1.01 cm e': 0.08 m/s E - e': 9.30 LVOT Max Gradient: 2.83 mm[Hg] LVOT Area (cm2): 0.84 m/s Peak Velocity (LVOT): 0.84 m/s Mean Velocity (LVOT): 0.52 m/s LVOT Diameter 2.26 cm Left Atrium LA Volume Index (2D A2C): 31.30 ml/m2 Left Atrium Systolic Dimension: 4.05 cm Mitral Valve MV E to A Ratio: 1.07 Mitral Valve A-Wave Peak Velocity: 0.67 m/s Mitral Valve E-Wave Peak Velocity: 0.72 m/s Right Ventricle Aorta AO Root Diam: 3.78 cm Ascending Ao Diam: 3.41 cm Aortic Valve AoV Area (Peak Jamal): 2.63 cm2, 2.63 cm2 AoV Area (VTI): 2.42 cm2, 2.42 cm2 Peak Velocity(Antegrade Flow): 1.28 m/s Peak Gradient(Antegrade Flow): 6.59 mm[Hg] Mean Velocity(Antegrade Flow): 0.86 m/s Mean Gradient(Antegrade Flow): 3.33 mm[Hg] Velocity Time Integral: 28.01 cm Tricuspid Valve Peak Velocity (Regurgitant Flow): 2.76 m/s Pulmonic Valve Mean Gradient: 2.80 mm[Hg] Mean Velocity: 0.74 m/s Peak Velocity: 1.38 m/s, 1.35 m/s Peak Gradient: 7.60 mm[Hg], 7.25 mm[Hg] Right Atrium Right Atrium Systolic Pressure: 60.47 ml, 60.47 ml Dictated by: Remy Hendrickson M.D. on 11/20/2023 at 21:29 Approved by: Remy Hendrickson M.D. on 11/20/2023 at 21:31
== END 2023-11-20 06:55 | disposition home or self-care (01) ==
LOC: CARD 06:57
PROVIDERS: PCP Physician Assistant; Visit Provider Family Medicine
DX: R94.39 Abnormal result of other cardiovascular function study (principal); R07.9 Chest pain, unspecified; I48.91 Unspecified atrial fibrillation
CPT/HCPCS: 93306

== ENCOUNTER 2023-11-26 07:44 | Outpatient (OUT) | payer MEDICARE, SELFPAY ==
--- OUTSIDE RECORDS SUMMARY | 2023-11-26 07:54 | XMS_ITS | CCD ---
Author Organization [facility] CliniSyin Care Team Providers Care Casino Porter Name Role Phone BRITTANY, DR RENE Maya Primary Care Unavailable MISC, DR KIRKLAND Consulting Unavailable DAVE BUENROSTRO Admitting Unavailable JAMES, DAVE Attending Unavailable SOTO, DR RENE Maya Primary Care Unavailable DAVE BUENROSTRO Admitting Unavailable JMAES, DAVE Attending Unavailable DAVE BUENROSTRO Consulting Unavailable CRISTOPHER, DAVE Attending Unavailable CRISTOPHER, DAVE Consulting Unavailable SOTO, DR RENE Maya Primary Care Unavailable CRISTOPHER, DAVE Admitting Unavailable SOTO, DR RENE Maya Primary Care Unavailable JAMES, DAVE Admitting Unavailable JAMES, DAVE Attending Unavailable PEDRO BARRAGAN Primary Care Unavailable PEDRO BARRAGAN Referring Unavailable JAMES, DAVE Admitting Unavailable JAMES, DAVE Attending Unavailable MD Vernon Garcia Attending Provider [phone] MD Pedro Barragan Primary Care Provider Michelle Murrell Unavailable Saúl Nichole Unavailable Pedro Barragan MD Unavailable Pedro Barragan MD Primary Care Provider MD Pedro Barragan Primary Care Provider CHAITANYA Murrell Attending Provider MD Pedro Barragan Primary Care Provider MD Vernon Garcia Attending Provider [phone] Vernon Garcia Attending Unavailable Vernon Garcia Admitting Unavailable Pedro Barragan Primary Care Unavailable Michelle Murrell Attending Unavailable Pedro Barragan Primary Care Unavailable Michelle Murrell Admitting Unavailable Pedro Barragan Primary Care Unavailable Saúl Nichloe Attending Unavailable Saúl Nichole Admitting Unavailable Pedro [...] (antibiotic) (1 source) Trimethoprim Drug Allergy 4 [facility] Sulfonamides (antibiotic) (1 source) Sulfamethoxazole Drug Allergy 4 [facility] (2 sources) Sulfamethoxazole / Trimethoprim Drug Allergy 2 [facility] Repository (7 sources) Sulfamethoxazole / Trimethoprim Drug Allergy 2 Unknown [facility] (1 source) Sulfonamides (Antibiotic) Drug Allergy 3 Unknown [facility] Work Phone: (7 sources) Sulfamethoxazole; Translations: [sulfamethoxazole] Drug Allergy 4 [facility] (7 sources) Trimethoprim; Translations: [trimethoprim] Drug Allergy 4 [facility] (1 source) Sulfamethoxazole / Trimethoprim; Translations: [SULFAMETHOXAZOLE-TR IMETHOPRIM] Drug Allergy 2 [facility] Repository Medications Current Medications Medication Drug Class(es) Dates Sig (Normalized) Sig (Original) acetaminophen 300 mg / codeine phosphate 30 mg oral tablet (1 source) Opioid Agonist take 1 tablet by mouth every six hours as needed for pain acetaminophen-cod eine (TYLENOL/CODEINE #3) 300-30 MG tablet Take 1 tablet by mouth every 6 (six) hours if needed for severe pain. 0 Active [id number] 200 actuat albuterol 0.09 mg/actuat metered dose [...] Coronary arteriosclerosis; Translations: [Atherosclerotic heart disease of [place] coronary artery without angina pectoris] Onset: 03-07-2022 [...] pvr rest Carlos US arterial pvr rest [facility] [place] [address] Ultrasound Report Signed Patient: Souleymane Wu MR#: [id number] 05 : 1950 Acct:[id number] Age/Sex: 73 / M ADM Date: 09/01/23 Loc: Room: Type: [facility] Attending Dr: Vernon Garcia MD Ordering [...] Pj Roldan M.D.09/02/2023 11:56 AM Dictation Location: [place] [address] Tech: Pauline Garvin Transcribed By: HAWA 09/02/23 1156 Dictated By: Pj Roldan MD 09/02/23 1155 Signed By: 09/02/23 1156 Normal [facility] Office Visiton 06-04-2023 Follow-up visit [id number] Mikel Wu 1950 M Date Provider Department Center 06/04/2023 [facility] Family History Problem Relation Age of Onset Stroke Mother Breast cancer Mother COPD Father Family Status - Relation Status Age at Mother Father Level of Service:[address] [place] OFFICE/OUTPATIENT ESTABLISHED MOD MDM 30 MIN Normal [facility] Laboratory - Hematology and Cell countson 04-28-2023 HbA1c (Bld) [Mass fraction] 6.0 % [facility] 36on 04-01-2023 36 Patient called c/o pain in the back of his thighs and shoulders for the past few weeks. He wonders if it could be from atorvastatin. He's been on 40mg of it since 2013. Can he try a different one? Please advise. Thanks! Normal [facility] XR hip LT min 2V(w/wo pelvis )*on 01-28-2023 XR hip LT min 2V(w/wo pelvis)* [facility] Main [place] [address] [place] [address] XRay Report Signed Patient: Souleymane Wu JR MR#: [id number] : 1950 Acct:[id number] Age/Sex: 73 / M ADM Date: 01/28/23 Loc: XD Room: Type: [facility] Attending Dr: Vernon Garcia MD Copies to: Vernon Garcia MD Ordering Provider: Vernon Garcia MD Date of Service: 01/28/23 XR/XR lumbar spine 6V w bending: M47.816 ([id number]) XR/XR hip LT min 2V(w/wo pelvis)*: M25.559 [...] Judie Madrid M.D.01/28/2023 2:38 PM Dictation Location: [place] [address] Transcribed By: [facility] 01/28/23 143 Dictated By: Judie Madrid MD 01/28/231433 Signed By: 01/28/23 143 Normal [facility] Office Visiton 11-26-2022 Follow-up visit [id number] Mikel Wu 1950 Date Provider Department Center 11/26/2022 [facility] Family History Problem Relation Age of Onset Stroke Mother Breast cancer Mother COPD Father Family Status - Relation Status Age at Mother Father Level of Service:[address]126 [place] OFFICE/OUTPATIENT ESTABLISHED MOD MDM 30-39 MIN Normal [facility] Cardiovascular Lab Reporton 10-04-2021 Cardiovascular Lab Report [facility] Patient Name: Souleymane Wu MR #: [id number] [facility] Physician: Dave Buenrostro MD Service Date: 10/04/2021 Department of Birthdate: 1950 Medicine Room #: CC Division of Cardiology Adult Cardiovascular Services [place] [address] Cardiovascular Laboratory Report LOOP EXPLANT REIMPLANT PROCEDURE [...] device was exteriorized. I then used a [employer] tool to place the new LOOP device. The skin was then closed with 3-0 absorbable monofilament suture and glue applied to hold the edges together. Tegaderm was applied to cover the wound. The patient appeared to tolerate the procedure well and was returned to room in stable condition. No complications were immediately observed. LOOP details: Implanted device: [employer] LUX DX Serial#[id number] Sensin.15mV Removed device [employer] LINQ Serial# [id number] IMPRESSION: Successful explant of old LOOP and implant of new LOOP device. RECOMMENDATIONS: 1. Occlusive dressing to be changed after 7 days. 2. Do not wet the incision. Dave Buenrostro MD Cardiac Electrophysiology Electronically Signed by: Dave Buenrostro MD 10/06/2021 03:34 P Dave Buenrostro MD Date Dict: 10/04/2021/09:31 A/Dave Buenrostro MD Date Trans: 10/04/2021 10:09 Higinio/naresh [id number] cc: Pedro Barragan M.D. Life Stages 3 [facility] [address] Normal [facility] Covid-19 PCR (CVDTB)on 09-21 SARS-CoV-2 (COVID-19) RNA SARBJIT+probe Ql (Unsp spec) Not detected Normal NOT DETECTED The [facility] Comment on above: Result Comment: This test is not yet approved or cleared by the [place] FDA. When there are no FDA-approved or cleared tests available, and other criteria are met, FDA can make tests available under an emergency access mechanism called an Emergency Use Authorization (EUA). The EUA for this test is supported by the [place] of Health and Human Service's (HHS's) declaration [...] SARS-CoV-2. Performed By: #### C VDTBH #### [facility] Laboratory [address] [place], [place] [address] Dr. Michaelle Canada RBC Sedimentation Rateon ESR (Bld) [Velocity] 12.00 mm/h Normal 0.00-20.00 [facility] Comment on above: Performed By: #### E #### [facility] [address] [place], [place] [id number] Covid-19 PCR ([facility])on 01-22 SARS-CoV-2 (COVID-19) RNA SARBJIT+probe Ql (Unsp spec) Not detected Normal NOT DETECTED The [facility] Comment on above: Result Comment: This test is not yet approved or cleared by the [place] FDA. When there are no FDA-approved or cleared tests available, and other criteria are met, FDA can make tests available under an emergency access mechanism called an Emergency Use Authorization (EUA). The EUA for this test is supported by the [place] of Health and Human Service's (HHS's) declaration [...] SARS-CoV-2. Performed By: #### C VDTBH #### [facility] [address] [place] [address] [address] Michaelle Canada Vital Signs Date Time Vital Sign Value Performing Clinician Facility 11-04-2023 09:03-0400 Body weight 110.22 kg MD Pedro Barragan Work Phone: [facility] 10-23-2023 15:240400 Body weight 111.58 kg MD Pedro Barragan Work Phone: [facility] 10-23-2023 15:24-0400 Heart rate 75 /min MD Pedro Barragan Work Phone: [facility] 10-23-2023 15:240400 SaO2% (BldA) [Mass fraction] 99 % MD Pedro Barragan Work Phone: [facility] 09-29-2023 15:09-0400 Body height 180.34 cm MD Pedro Barragan Work Phone: [facility] 09-29-2023 15:09-0400 Body mass index (BMI) [Ratio] 33.7 kg/m2 MD Pedro Barragan Work Phone: [facility] 09-29-2023 15:09-0400 Body weight 109.76 kg MD Pedro Barragan Work Phone: [facility] 09-29-2023 15:09-0400 Diastolic blood pressure 82 mm[Hg] MD Pedro Barragan Work Phone: [facility] 09-29-2023 15:09-0400 Systolic blood pressure 118 mm[Hg] MD Pedro Barragan Work Phone: [facility] 09-17-2023 10:09-0400 Body height 180.34 cm MD Pedro Barragan Work Phone: [facility] 09-17-2023 10:09-0400 Body mass index (BMI) [Ratio] 34 kg/m2 MD Pedro Barragan Work Phone: [facility] 09-17-2023 10:09-0400 Body weight 110.87 kg MD Pedro Barragan Work Phone: [facility] 09-17-2023 10:09-0400 Diastolic blood pressure 75 mm[Hg] MD Pedro Barragan Work Phone: [facility] 09-17-2023 10:09-0400 Heart rate 70 /min MD Pedro Barragan Work Phone: [facility] 09-17-2023 10:09-0400 Respiratory rate 18 /min MD Pedro Barragan Work Phone: [facility] 09-17-2023 10:09-0400 SaO2% (BldA) [Mass fraction] 97 % MD Pedro Barragan Work Phone: [facility] 09-17-2023 10:09-0400 Systolic blood pressure 117 mm[Hg] MD Pedro Barragan Work Phone: [facility] 09-04-2023 14:29-0400 Body height 180.34 cm MD Pedro Barragan Work Phone: [facility] 09-04-2023 14:29-0400 Body mass index (BMI) [Ratio] 34 kg/m2 MD Pedro Barragan Work Phone: [facility] 09-04-2023 14:29-0400 Body weight 110.67 kg MD Pedro Barragan Work Phone: [facility] 08-19-2023 08:15-0400 Body height 180.34 cm [facility] 08-19-2023 08:15-0400 Body mass index (BMI) [Ratio] 34.2 kg/m2 [facility] 08-19-2023 08:15-0400 Body weight 111.13 kg [facility] 07-02-2023 10:01-0400 Body height 180.34 cm [facility] 07-02-2023 10:01-0400 Body mass index (BMI) [Ratio] 35.7 kg/m2 [facility] 07-02-2023 10:01-0400 Body weight 116.23 kg [facility] 07-02-2023 10:01-0400 Diastolic blood pressure 75 mm[Hg] [facility] 07-02-2023 10:01-0400 Heart rate 68 /min [facility] 07-02-2023 10:01-0400 Respiratory rate 18 /min [facility] 07-02-2023 10:01-0400 SaO2% (BldA) [Mass fraction] 97 % [facility] 07-02-2023 10:01-0400 Systolic blood pressure 125 mm[Hg] [facility] 05-07-2023 10:16-0500 Body height 180.34 cm MD Pedro Barragan Work Phone: [facility] 05-07-2023 10:16-0500 Body mass index (BMI) [Ratio] 36 kg/m2 MD Pedro Barragan Work Phone: [facility] 05-07-2023 10:16-0500 Body weight 117.25 kg MD Pedro Barragan Work Phone: [facility] 05-07-2023 10:16-0500 Diastolic blood pressure 69 mm[Hg] MD Pedro Barragan Work Phone: [facility] 05-07-2023 10:16-0500 Heart rate 65 /min MD Pedro Barragan Work Phone: [facility] 05-07-2023 10:16-0500 Respiratory rate 18 /min MD Pedro Barragan Work Phone: [facility] 05-07-2023 10:16-0500 SaO2% (BldA) [Mass fraction] 97 % MD Pedro Barragan Work Phone: [facility] 05-07-2023 10:16-0500 Systolic blood pressure 121 mm[Hg] MD Pedro Barragan Work Phone: [facility] 04-22-2023 08:40-0500 Body height 180.34 cm Michelle Murrell Other [facility] 04-22-2023 08:40-0500 Body mass index (BMI) [Ratio] 36.68 kg/m2 Michelle Murrell Other [employer] Other 04-22-2023 08:40-0500 Body weight 119.3 kg Michelle Murrell Other [employer] Other 04-22-2023 08:40-0500 Body weight 119.29 kg MD Pedro Barragan Work Phone: [facility] 03-12-2023 09:45-0500 Body height 180.34 cm Saúl Nichole Other [facility] 03-12-2023 09:45-0500 Body mass index (BMI) [Ratio] 38.31 kg/m2 Saúl Nichole Other [employer] Other 03-12-2023 09:45-0500 Body weight 124.6 kg Saúl Nichole Other [facility] 03-12-2023 09:45-0500 Diastolic blood pressure 83 mm[Hg] Saúl Nichole Other [facility] 03-12-2023 09:45-0500 Respiratory rate 18 /min Saúl Nichole Other [employer] Other 03-12-2023 09:45-0500 SaO2% (BldA) [Mass fraction] 98 % Saúl Nichole Other [employer] Other 03-12-2023 09:45-0500 Systolic blood pressure 131 mm[Hg] Saúl Nichole Other [facility] 01-28-2023 08:40-0500 Body height 182.88 cm Michelle Murrell Other [employer] Other 01-28-2023 08:40-0500 Body mass index (BMI) [Ratio] 37.7 kg/m2 Michelle Murrell Other [employer] Other 01-28-2023 08:40-0500 Body weight 126.1 kg Michelle Murrell Other [employer] Other Encounters Encounter Date Encounter Type Care Provider Facility Start: 11-04-2023 End: 11-04-2023 ambulatory MD Pedro Barragan Work Phone: [facility] Work Phone: Start: 11-04-2023 End: 11-04-2023 Patient encounter procedure MD Pedro Barragan Work Phone: [facility] Neurosurgery Work Phone: Start: 10-28-2023 End: 10-28-2023 ambulatory PEDRO BARRAGAN Not Available Start: 10-23-2023 End: 10-23-2023 ambulatory MD Pedro Barragan Work Phone: [facility] Work Phone: Start: 10-23-2023 End: 10-23-2023 Patient encounter procedure MD Pedro Barragan Work Phone: [facility] Pain Management Work Phone: Start: 10-16-2023 End: 10-16-2023 ambulatory MD Pedro Barragan Work Phone: [facility] Work Phone: Start: 10-16-2023 End: 10-16-2023 Patient encounter procedure MD Pedro Barragan Work Phone: [facility] Work Phone: Start: 10-16-2023 Non-patient / Non-visit MD Evans Barragan Work Phone: [facility] Work Phone: Start: 09-29-2023 End: 09-29-2023 ambulatory MD Pedro Barragan Work Phone: [facility] Work Phone: Start: 09-29-2023 End: 09-29-2023 Patient encounter procedure MD Pedro Barragan Work Phone: [facility] Work Phone: Start: 09-17-2023 End: 09-17-2023 ambulatory MD Pedro Barragan Work Phone: [facility] Work Phone: Start: 09-17-2023 End: 09-17-2023 Patient encounter procedure MD Pedro Barragan Work Phone: [facility] Work Phone: Start: 09-04-2023 End: 09-04-2023 ambulatory MD Pedro Barragan Work Phone: [facility] Work Phone: Start: 09-04-2023 End: 09-04-2023 Patient encounter procedure MD Pedro Barragan Work Phone: [facility] Neuro[facility] Work Phone: Start: 09-02-2023 ambulatory [facility] Start: 09-01-2023 End: 09-01-2023 Patient encounter procedure MD Pedro Barragan Work Phone: [facility] [place] Work Phone: Start: 09-01-2023 End: 09-01-2023 ambulatory MD Pedro Barragan Work Phone: [facility] Work Phone: Start: 08-19-2023 End: 08-19-2023 ambulatory [facility] Work Phone: Start: 08-19-2023 End: 08-19-2023 Patient encounter procedure [facility] Work Phone: Start: 08-06-2023 ambulatory [facility] Start: 07-02-2023 End: 07-02-2023 ambulatory [facility] Work Phone: Start: 07-02-2023 End: 07-02-2023 Patient encounter procedure [facility] Work Phone: Start: 06-17-2023 ambulatory [facility] Start: 06-16-2023 End: 06-16-2023 ambulatory PROSPER TRAN Not Available Start: 06-04-2023 End: 06-05-2023 ambulatory SHERLEY [facility] Start: 05-28-2023 End: 05-28-2023 ambulatory JUDIE YOUSSEF Not Available Start: 05-22-2023 End: 05-22-2023 ambulatory CARA DUBOIS Not Available Start: 05-07-2023 End: 05-07-2023 Patient encounter procedure MD Pedro Barragan Work Phone: [facility] Work Phone: Start: 05-07-2023 End: 05-07-2023 ambulatory MD Pedor Barragan Work Phone: [facility] Work Phone: Start: 04-29-2023 Chart abstracting Pedro Barragan MD Work Phone: [facility] Start: 04-29-2023 End: 04-29-2023 ambulatory PEDRO BARRAGAN Not Available Start: 04-28-2023 Non-patient / Non-visit [facility] Professional [facility] Work Phone: Start: 04-22-2023 End: 04-22-2023 ambulatory Michelle Murrell Other [facility] Other Start: 04-22-2023 Office outpatient vi sit 15 minutes Michelle Murrell [facility] Neurosurgery Start: 04-22-2023 End: 04-22-2023 Patient encounter procedure MD Pedro Barragan Work Phone: [facility] Start: 04-04-2023 End: 04-04-2023 ambulatory Saúl Nichole Other [facility] Other Start: 04-04-2023 Telephone encounter Saúl Chou [facility] Start: 03-31-2023 End: 03-31-2023 ambulatory Saúl Nichole Other [facility] Other Start: 03-31-2023 Telephone encounter Saúl Chou [facility] Start: 03-19-2023 End: 03-19-2023 ambulatory Saúl Nichole Other [facility] Other Start: 03-19-2023 Telephone encounter Saúl MCKAY [employer] Start: 03-12-2023 Nutrition therapy Saúl Nichole [facility] Start: 03-12-2023 Registered Recurring MD Pedro Barragan Work Phone: [facility] Work Phone: Start: 03-12-2023 End: 03-12-2023 ambulatory [facility] Other Start: 03-12-2023 End: 03-12-2023 Patient encounter procedure MD Pedro Barragan Work Phone: [facility] Work Phone: Start: 01-28-2023 Office outpatient vi sit 25 minutes [facility] Neuro[facility] Start: 01-28-2023 End: 01-28-2023 Patient encounter procedure MD Pedro Barragan Work Phone: [facility] Work Phone: Start: 01-28-2023 End: 01-28-2023 ambulatory MD Pedro Barragan Work Phone: [facility] Work Phone: Start: 11-26-2022 End: 11-26-2022 ambulatory YOBANY [facility] Start: 10-04-2021 End: 10-05-2021 ambulatory PEDRO BARRAGAN Facility:[facility] Start: 10-03-2021 Encounter for preprocedural laboratory examination DAVE BUENROSTRO [facility] Start: 10-02-2021 End: 10-03-[address] [...] Screening [facility] Start: 09-04-2023 Patient referral [facility] Work Phone: Start: 09-01-2023 Pulse volume recorder pneumoplethysmography US arterial pvr rest LE [facility] Start: 09-01-2023 [facility] Start: 08-20-2023 Patient referral [facility] Work Phone: Start: 05-21-2023 End: 05-21-2023 Clinical Support 05/21/2023 8:00 AM EST Clinical Support [facility] [address] [facility] [address] [place] [phone] Cara Dubois, [facility] [address] [place] [address] [facility] Start: 04-29-2023 End: 04-29-2023 Patient encounter procedure 04/29/2023 11:15 AM EST Office Visit [facility] [address] [facility] [address] [place] [id number] Pedro Barragan MD [address] [facility] [address] [place] [address] [facility] Start: 04-03-2023 Medicare Annual Wellness (AWV) Medicare Annual Wellness (AWV) [facility] Start: 12-05-2022 Hemoglobin A1c measurement Diabetes: Hemoglobin A1C [facility] Start: 01-08-1971 Urine screening for protein Diabetes: Urine Protein Screening [facility] Start: 1950 Screening for malignant neoplasm of colon [facility] Patient referral [facility] Work Phone: [facility] Immunizations Immunization Date Immunization Notes Care Provider Fa cili 12-31-2022 Influenza, Seasonal, Quadrivalent, Adjuvanted Pedro Barragan MD Work Phone: [facility] 06-08-2022 zoster vaccine recombinant R silviano Barragan MD Work Phone: [facility] 04-03-2022 zoster vaccine recombinant Kurtis Barragan MD Work Phone: [facility] 02-22-[address] 12 Years And Older Pedro Barragan MD Work Phone: [facility] 01-07-2022 Influenza, Seasonal, Quadrivalent, Adjuvanted Pedro Barragan MD Work Phone: [facility] 12-18-2020 Influenza, Seasonal, Quadrivalent, Adjuvanted Pedro Barragan MD Work Phone: [facility] 03-31-2020 tetanus toxoid, redu marcella diphtheria toxoid, and acellular pertussis vaccine, adsorbed Pedro Barragan MD Work Phone: [facility] 12-06-2019 influenza, injectabl e, quadrivalent, preservative free Pedro Barragan MD Work Phone: [facility] 03-01-2019 pneumococcal polysaccharide vaccine, 23 valent Pedro Barragan MD Work Phone: [facility] 01-22-2019 influenza, high dose seasonal, preservative-free Pedro Barragan MD Work Phone: [facility] 03-02-2018 pneumococcal conjuga te vaccine, 13 valent Pedro Barragan MD Work Phone: [facility] 01-02-2018 Seasonal trivalent influenza vaccine, adjuvanted, preservative free Pedro Barragan MD Work Phone: [facility] 01-22-2017 influenza, high dose seasonal, preservative-free Pedro Barragan MD Work Phone: [facility] 01-11-2013 influenza, seasonal, injectable Pedro Barragan MD Work Phone: [facility] 2012 tetanus toxoid, redu marcella diphtheria toxoid, and acellular pertussis vaccine, adsorbed Pedro Barragan MD Work Phone: [facility] 09-11-2009 tetanus toxoid, redu marcella diphtheria toxoid, and acellular pertussis vaccine, adsorbed Pedro Barragan MD Work Phone: [facility] Payers Date Payer Category Payer Medicare [id number] 2. [id number] 2023 Self-pay 2016 Medicare [id number] 1959 Medicare [id number] 1959 Unknown [id number] 1950 Unknown [id number] 2.16.84 [id number] 1950 Unknown [id number] 2.16.84 [id number] 1950 Unknown [id number] 2.16.84 [id number] 1950 Unknown [id number] 2.16.84 [id number] 1950 Unknown [id number] 2.16.8 [id number] 1950 Unknown [id number] 2.16.84 [id number] 1950 Unknown [id number] 2.16.84 0.1.120146.3.579.2.1259 1950 Unknown [id number] 2.16.84 0.1.715604.3.579.2.1259 1950 Unknown [id number] 2.16.84 0.1.070067.3.579.2.1259 1950 Unknown [id number] 2.16.84 0.1.094287.3.579.2.1259 Unknown Other1 (STD) [id number] Unknown [id number] 2.16.8 40.1.020041.3.579.2.531 Unknown [id number] 2.16.8 40.1.730895.3.579.2.531 Unknown [id number] 2.16.8 40.1.214652.3.579.2.531 Unknown [id number] 2.16.8 40.1.603910.3.579.2.531 Social History Date Type Detail Facility Tobacco smoking status MNIS Unknown if ever smoked [facility] Work Phone: Start: 1950 Sex Assigned At Male F [facility] Start: 11-20-2022 Sex Assigned At N [facility] Other Start: 09-03-2022 Tobacco smoking status NHIS Never smoked tobacco [facility] Start: 09-03-2022 Tobacco use and exposure Smokeless tobacco non-user [facility] Start: 11-20-2022 Alcohol intake Current drinke r of alcohol (finding) [facility] Start: 11-20-2022 Alcohol intake [facility] Start: 09-25-2022 Alcohol Comment Monthly [facility] Start: 1950 Sex Assigned At Not on file [facility] Start: 09-29-2023 Tobacco smoking status NHIS Current some day smoker [facility] Clinical Notes 11-26-2022 to 08-20-2023 Note Date & Type Note Facility 08-20-2023 Hospital Discharge instructions Ambulatory OrdersReferral to Vascular Surgery Time Frame: 08/20/23, Location: None Selected [facility] Work Phone: 06-04-2023 Note [facility] [...] 25 Calcium 8.6 (more content not included)... [facility] 06-04-2023 Note Patient here for 6 m [...] All other systems reviewed and are negative. [facility] 06-04-2023 Note Coronary artery dise ase is stable Continue GDMT- ASA, plavix, lipitor, imdur and metoprolol continue risk factor modifications- heart healthy diet, regular exercise as tolerated and continue all medications. [facility] 06-04-2023 Note Hypertension is well controlled Continue lisinopril, metoprolol, aldactone [facility] 06-04-2023 Note [id number] Vasc= 3 Continue eliquis anticoagulation and metoprolol for rate control [facility] 06-04-2023 Note Lipid abnormalities are very well controlled- c/o myalgias on lipitor and continued on crestor therefore will change to pravastatin 20 mg daily and monitor lipid level in 3-6 months. Goal LDL < 70 and currently 42. [facility] 04-22-2023 Evaluation note Encounter Date Diagnosis Assessment Notes Mar, Lumbar spondylosis (ICD-10 - M47.816) Mr Wu is doing well with conservative therapy. Has lost 13lbs in which he feels has help the pain in his back. Will continue to do conservative therapy. Follow up in 6 months. Mar, Lumbar disc disorder (ICD-10 - M51.9) Mar, BMI 37.0-37.9, adult (ICD-10 - Z68.37) [facility] Other 01-08-2024 Evaluation note* Encounter Date Diagnosis Assessment Notes Treatment Notes Treatment Clinical Notes Mar, Type 2 diabetes mellitus (ICD-10 - E11.9) [facility] Other 12-20-2023 Evaluation note* Encounter Date Diagnosis [...] voice recognition software. Please excuse errors in clerk rating. Feb, Exercise counseling (ICD-10 - Z71.89) Absolute HGS at time of consultation (pounds): 56.9Discussed in detail exercise interventions to promote lean tissue mass preservation during calorie restriction. Feb, Type 2 diabetes mellitus (ICD-10 - E11.9) 15-year history Adding GLP-1 RA. Patient agreeable Feb, ASCVD (arteriosclerotic cardiovascular disease) (ICD-10 - I25.10) 2014 LAD single stent [facility] Other 11-07-2023 Evaluation note* Encounter Date Diagnosis [...] prescribed we will add lidocaine patches and [id number] Thermo patches. Discussion of weight, BMI >35, will refer to weight management. Will follow up in 12 weeks. Jan, Lumbar disc disorder (ICD-10 - M51.9) Jan, Left hip pain (ICD-10 - M25.552) Jan, BMI 37.0-37.9, adult (ICD-10 - Z68.37) [facility] Other 09-05-2023 NoteUT Electrophysiology Note [facility] Reason for Follow up: a-fib, loop data, [...] of A. fib. The device is reached [employer] since April 2021. He is concerned about [...] no orthopnea, no PND, (more content not included)...[facility]09-05-2023 NotePatient here for 6 mo follow up PAF, hypertension, and CAD. Gets an intermittent chest discomfort , which he says is not new or different . Denies SOB and palpitations. Review of Systems Constitutional: Positive for malaise/fatigue. Cardiovascular: Positive for chest pain ( discomfort ). Musculoskeletal: Positive for arthritis and back pain. All other systems reviewed and are negative.[facility] Evaluation noteNo assessment information availableSt. [facility] Work Phone: Evaluation noteNo InformationNort [employer] Other Evaluation note* Diagnosis Onset Date Resolution Status ASCVD (arteriosclerotic cardiovascular disease) acute Dietary surveillance and counseling acute Exercise counseling acute Obesity, Class II, BMI 35-39.9 acute Type 2 diabetes mellitus [facility] Work Phone: Evaluation note* Diagnosis Onset Date Resolution Status ASCVD (arteriosclerotic cardiovascular disease) acute Dietary surveillance and counseling acute Exercise counseling acute Obesity, Class II, BMI 35-39.9 acute Type 2 diabetes mellitus acu te ASCVD (arteriosclerotic cardiovascular disease) acute Dietary surveillance and counseling acute Exercise counseling acute Obesity, Class II, BMI 35-39.9 acute Type 2 diabetes mellitus acu te [facility] Work Phone: Evaluation note* Diagnosis Onset Date Resolution Status ASCVD (arteriosclerotic cardiovascular disease) acute Dietary surveillance and counseling acute Exercise counseling acute Obesity, Class II, BMI 35-39.9 acute Type 2 diabetes mellitus acu te Left lumbar radiculopathy ac [place] Lumbar stenosis acute Vascular claudication acute [facility] Work Phone: evaluation note* Diagnosis Onset Date Resolution Status ASCVD (arteriosclerotic cardiovascular disease) acute Dietary surveillance and counseling acute Exercise counseling acute Obesity, Class II, BMI 35-39.9 acute Type 2 diabetes mellitus acu te Left lumbar radiculopathy ac [place] Lumbar stenosis acute Vascular claudication acute Left lumbar radiculopathy ac [place] Lumbar stenosis acute [facility] Work Phone: Evaluation note* Diagnosis Onset Date Resolution Status ASCVD (arteriosclerotic cardiovascular disease) acute Dietary surveillance and counseling acute Exercise counseling acute Obesity, Class II, BMI 35-39.9 acute Type 2 diabetes mellitus acu te Left lumbar radiculopathy ac [place] Lumbar stenosis acute Vascular claudication acute Left lumbar radiculopathy ac [place] Lumbar stenosis acute ASCVD (arteriosclerotic cardiovascular disease) acute Dietary surveillance and counseling acute Exercise counseling acute Obesity, Class II, BMI 35-39.9 acute Type 2 diabetes mellitus acu te [facility] Work Phone: Evaluation note* Diagnosis Onset Date Resolution Status ASCVD (arteriosclerotic cardiovascular disease) acute Dietary surveillance and counseling acute Exercise counseling acute Obesity, Class II, BMI 35-39.9 acute Type 2 diabetes mellitus acu te Left lumbar radiculopathy ac [place] Lumbar stenosis acute Vascular claudication acute Left lumbar radiculopathy ac [place] Lumbar stenosis acute ASCVD (arteriosclerotic cardiovascular disease) acute Dietary surveillance and counseling acute Exercise counseling acute Obesity, Class II, BMI 35-39.9 acute Type 2 diabetes mellitus acu te Lumbar radiculopathy acute Lumbosacral spondylosis acut e Other chronic pain acute [facility] Work Phone: Evaluation note* Diagnosis Onset Date Resolution Status Left lumbar radiculopathy ac [place] Lumbar stenosis acute Vascular claudication acute Left lumbar radiculopathy ac [place] Lumbar stenosis acute ASCVD (arteriosclerotic cardiovascular disease) acute Dietary surveillance and counseling acute Exercise counseling acute Obesity, Class II, BMI 35-39.9 acute Type 2 diabetes mellitus acu te Lumbar radiculopathy acute Lumbosacral spondylosis acut e Other chronic pain acute [facility] Work Phone: Evaluation note* Diagnosis Onset Date Resolution Status Left lumbar radiculopathy ac [place] Lumbar stenosis acute Vascular claudication acute Left lumbar radiculopathy ac [place] Lumbar stenosis acute ASCVD (arteriosclerotic cardiovascular disease) acute Dietary surveillance and counseling acute Exercise counseling acute Obesity, Class II, BMI 35-39.9 acute Type 2 diabetes mellitus acu te Lumbar radiculopathy acute Lumbosacral spondylosis acut e Other chronic pain acute Lumbar radiculopathy acute Lumbosacral spondylosis acut e Other chronic pain acute [facility] Work Phone: History general Narrative - Reported* Type Description Date Medical History diabetes mallitus Medical History heart disease Medical History Hypertension Medical History obesity Medical History Atrial fibrillation Surgical History left shoulder seperation Hospitalization History see above [facility] Other History general Narrative - Reported* Type Description Date Medical History diabetes mallitus Medical History heart disease Medical History Hypertension Medical History obesity Medical History Atrial fibrillation Surgical History left shoulder seperation Surgical History A-fib monitor Hospitalization History see above Hospitalization History Heart attack 2014 [facility] Other Hospital Discharge instructionsAmbulatory Orders* Referral to Pain Management Location: None Selected [facility] Work Phone: Summary Purpose Family History Relationship [...] 1 Lumbar spondylosis ( M47.816) Referral Organization [facility] Referring Provider First Name Michelle Referring Provider Last Name Murrell Referring Provider Specialty Nurse Pract itioner Referred Organization [facility] Referred Provider Myrna Stewart Referred Address [address], [place],[address] Referred Provider Specialty Pain Medicin e Referral Priority Routine Reason Evaluate and treat Diagnosis 1 Lumbar spondylosis ( M47.816) Referral Organization [facility] Referring Provider First Name Michelle Referring Provider Last Name Nyasia Referring Provider Specialty Nurse Pract itbogdanr Referred Organization [facility] Referred Address [address], [place],[address] Referred Provider Specialty Internal Med icine Referral Priority Routine Additional Source Comments (unrecognized sect ion and content) No Status Records FoundNo Status Records FoundNo Status Records FoundNo Status Records FoundNo Status Records FoundNo Status Records Found INFORMATION SOURCE (unrecogn ized section and content) DATE CREATED AUTHOR 07/04/2021 [facility] dical Specialist DATE CREATED AUTHOR AUTHOR'S ORGANIZ ATION 10/09/2021 [facility] DATE CREATED AUTHOR AUTHOR'S ORGANIZ ATION 10/10/2021 [facility] DATE CREATED AUTHOR AUTHOR'S ORGANIZ ATION 09/02/2023 [facility] DATE CREATED AUTHOR AUTHOR'S ORGANIZ ATION 09/03/2023 [facility] DATE CREATED AUTHOR AUTHOR'S ORGANIZ ATION 10/30/2023 [facility] dical Specialists [employer] Care Teams (unrecognized sec tion and content) Team Status: Active Member Role Status Dates Pedro Barragan MD Primary Care Provider Active Team Status: Inactive Member Role Status Dates Vernon Garcia MD Attending Provider Active Pedro Barragan MD Primary Care Provider Active Casino Porter Relationship Specialty Start Date End Date Pedro Barragan MD [address] [facility] [address] [place] [address] PCP - ACO Reach 08/15/22 Pedro Barragan MD [address] [facility] [address] [place] [address] PCP - General Family Medicine 09/02/22 Team [...] office noteAS Ozempic dosage - lmDCS Ozempic WK F/U, pain mgmt, wt mgmt FOR [...] BE BASED ON THE PRIMARY CLINICAL RECORDS. [employer] [place] [facility]. provides no warranty or guarantee of the accuracy or completeness of information in this document.
[2023-11-26 10:18] LABS: Chol HDL Ratio 2.9; Cholesterol 123 mg/dL (<=200); HDL Cholesterol 43 mg/dL (40-60); LDL Cholesterol Calculated 64.2 mg/dL; Triglycerides 79 mg/dL (<=150); VLDL CHOLESTEROL 15.8 mg/dL
== END 2023-11-26 07:45 | disposition home or self-care (01) ==
LOC: LAB 07:46
PROVIDERS: PCP Physician Assistant; Visit Provider Nurse Practitioner
DX: E78.00 Pure hypercholesterolemia, unspecified (principal); I25.118 Atherosclerotic heart disease of native coronary artery with other forms of angina pectoris
CPT/HCPCS: 36415; 80061